=== PATIENT | female | born 1980 | race Caucasian/White ===

== ENCOUNTER 2016-05-08 07:03 | Emergency (ER) | payer BC ==
[2016-05-08] MEDS ORDERED: Ondansetron INJ* 2 MG/ML VIAL IV ONE (07:40)
[2016-05-08 08:09] LABS: Hematocrit 44 % (35-47); Hemoglobin 14.8 g/dl (12.0-16.0); Mean Corpuscular HGB Conc 33 g/dl (31-36); Mean Corpuscular Hemoglobin 31 pg (27-31); Mean Corpuscular Volume 92 fL (80-97); Mean Platelet Volume 9 um3 (7.4-10.4); Red Cell Distribution Width 13 % (10.5-15); White Blood Count 12.5 10^3/ul (3.5-10.8)
[2016-05-08] MEDS: NS 0.9% 1000 ML* 2,000 ML IV ONE ×2 (08:09→10:04)
[2016-05-08 08:23] LABS: Albumin 4.3 g/dL (3.2-5.2); BUN/Creatinine Ratio 15.1 (8-20); Calcium 9.3 mg/dL (8.6-10.3); EGFR African American 75.9 (>60); Globulin 3.1 g/dL (2-4); Potassium 4.3 mmol/L (3.5-5.0); Total Bilirubin 1.1 mg/dL (0.2-1.0); Total Protein 7.4 g/dL (6.4-8.9)
[2016-05-08 08:26] LABS: Urine Bilirubin Negative (Negative); Urine Glucose 3+(>=500 mg/dL) (Negative); Urine Nitrite Negative (Negative)
[2016-05-08 08:58] LABS: Venous Bicarbonate HCO3 21.1 mmol/L (24-28)
[2016-05-08 12:41] VITALS: BP 112/60
--- NOTE | 2016-05-10 16:32 | ED ---
David Wheeler Matthew, scribed for Todd Alvarenga MD on 05/08/16 at 0738 . HPI Diabetic - HPI Summary HPI Summary: A 35 y/o female presents to the ED with ketones in her urine after her insulin pump stopped function in the middle of the night. This morning, the patient awoke and tested her urine for ketones and they were found to be high, which prompted her to present to the ED. Associated symptoms include body aches, chest pain, nausea, vomiting - 2x, diaphoresis, diarrhea, coughing, and lightheadedness. The patient states that she was feeling fine yesterday. She works at [employer] and has been around customers who were ill. She received her flu shot this year. PMHx: Diabetes. LNMP was 2 weeks ago. - History Of Current Complaint Chief Complaint: EDGeneral Time Seen by Provider: 05/08/16 07:17 Hx Obtained From: Patient Onset/Duration: Lasting Hours, Still Present Timing: Constant Severity Initially: Moderate Severity Currently: Moderate Aggravating: Nothing Alleviating: Nothing Associated Signs & Symptoms: Cough, Diaphoresis, Diarrhea, Nausea - Allergies/Home Medications Allergies/Adverse Reactions: Allergies Allergy/AdvReac Type Severity Reaction Status Date / Time No Known Allergies Allergy Verified 05/08/16 07:04 PMH/Surg Hx/FS Hx/Imm Hx Endocrine/Hematology History: Reports: Hx Diabetes Infectious Disease History: No Infectious Disease History: Denies: Traveled Outside the [place] in Last 30 Days - Family History Known Family History: Positive: Hypertension Family History: R & n/C - Social History Alcohol Use: None Hx Substance Use: No Substance Use Type: Reports: None Hx Tobacco Use: No Smoking Status (MU): Never Smoked Tobacco Review of Systems Constitutional: Negative Negative: Fever, Chills Eyes: Negative Negative: Erythema ENT: Negative Negative: Sore Throat Positive: Chest Pain Positive: Cough. Negative: Shortness Of Breath Positive: Vomiting, Diarrhea, Nausea. Negative: Abdominal Pain Genitourinary: Other - "keytones" Negative: dysuria, hematuria Positive: Myalgia - body aches. Negative: Edema Skin: Negative Negative: Rash Neurological: Other - lightheadedness Psychological: Normal All Other Systems Reviewed And Are Negative: Yes Physical Exam Triage Information Reviewed: Yes Vital Signs On Initial Exam: Initial Vitals Temp Pulse Resp BP Pulse Ox 98.8 F 108 18 113/71 99 05/08/16 07:04 05/08/16 07:04 05/08/16 07:04 05/08/16 07:04 05/08/16 07:04 Vital Signs Reviewed: Yes Appearance: Positive: No Pain Distress, Well-Nourished Skin: Positive: Warm, Dry Head/Face: Positive: Other - Normocephalic; Atraumatic Eyes: Positive: Conjunctiva Clear Dental: Negative: Cervical Lymphadenopathy Neck: Positive: Supple, No Lymphadenopathy, Other: - Full ROM Respiratory/Lung Sounds: Positive: Breath Sounds Present, Other - Normal Effort. Negative: Rales, Stridor, Tracheal Deviation, Wheezes Cardiovascular: Positive: RRR, Other - Heart sounds normal; Intact distal pulses; The pedal pulses are 2+ and symmetric. Radial pulses are 2+ and symmetric.. Negative: Murmur Abdomen Description: Positive: Nontender, Soft, Other: - NO rebound. Negative: Distended, Guarding Musculoskeletal: Negative: Edema Left, Edema Right Neurological: Positive: Alert, Oriented to Person Place, Time Psychiatric: Positive: Affect/Mood Appropriate Diagnostics - Vital Signs Vital Signs Temp Pulse Resp BP Pulse Ox 05/08/16 07:04 98.8 F 108 18 113/71 99 - Laboratory Result Diagrams: 05/08/16 07:50 05/08/16 07:50 Lab Statement: Any lab studies that have been ordered have been reviewed, and results considered in the medical decision making process. - EKG 07:07 Cardiac Rate: NL - 96 bpm EKG Rhythm: Sinus Rhythm Ectopy: None EKG Interpretation: No STEMI Diabetic Course/Dx - Course Assessment/Plan: A 35 y/o female presents to the ED with elevated ketones level after her insulin pump stopped function. Associated symptoms include body aches , chest pain, nausea, vomiting - 2x, diaphoresis, diarrhea, coughing, and lightheadedness. Labs were reviewed. EKG shows NSR at 96 bpm. In the ED course, the patient was given 2L of IV fluids and Zofran. Shes doing well in the ED and will be discharged home to follow-up with her PCP. - Diagnoses Provider Diagnoses: Gastroenteritis, Dehydration Discharge - Discharge Plan Condition: Stable Disposition: HOME Prescriptions: Ondansetron ODT TAB* [Zofran Odt TAB*] 4 mg PO Q8H PRN #9 tab.odt PRN Reason: Nausea/Vomiting Patient Education Materials: Gastroenteritis (ED), Dehydration (ED) Referrals: Mayank Green MD [Primary Care Provider] - 2 Days Additional Instructions: Please follow-up with your primary care physician in 2 days. Return to the emergency department for changing or worsening symptoms The documentation as recorded by the David samson Matthew accurately reflects the service I personally performed and the decisions made by me, Todd Alvarenga MD.
== END 2016-05-08 12:38 | disposition home or self-care (01) ==
LOC: ED 07:03
DX: K52.9 Noninfective gastroenteritis and colitis, unspecified (principal); E86.0 Dehydration; R05 Cough; R61 Generalized hyperhidrosis; R19.7 Diarrhea, unspecified; R11.0 Nausea
CPT/HCPCS: 36415; 80053; 81003; 82803; 83605; 85025; 93005; 96374; 99282; J2405

== ENCOUNTER 2017-03-02 16:47 | Emergency (ER) | payer SELFPAY ==
--- OUTSIDE RECORDS SUMMARY | 2017-03-02 16:58 | XMS REPORT ---
:1980 External Reference #:[id number] Author Organization [facility] Address [address] [place] [address] Phone [phone] Care Team Providers Name Role Phone Nan Green Care Team Information Cut Filer Unavailable Nan Green Primary Care Physician Unavailable Payers Type Date Identification Numbers Payment Provider Subscriber Commercial Effective: Policy Number: BC/BS Of NILAM Sukhjinder Jack 2017 [id number] PayID: [id number] [address] [address] [place] [address] Problems Date Description Provider Status Onset: 08/25/2016 Type 1 diabetes mellitus Adeola Lamar M.D. Active Onset: 08/25/2016 Depressive disorder Adeola Lamar M.D. Active Onset: 06/20/2011 Brachial neuritis Aly Abbasi M.D. Resolved Resolved: 08/25/2016 Onset: 07/09/2011 Neck pain Aly Abbasi M.D. Resolved Resolved: 08/25/2016 Onset: 07/09/2011 Acute maxillary sinusitis Aly Abbasi M.D. Resolved Resolved: 08/25/2016 Family History Date Family Member(s) Problem(s) Comments General Family is from [place] and [place]. PGF 70's, DM with jose leg amputation.MGM due to Breast CA age 80's. DMNo Fam hx Colon Ca. No other female cancers. Father 53, lung ca, smoker. continuous mining machine lode miner. Mother 55, healthy. smoker, alcoholic. Social History Type Date Description Comments Education Highest level of education completed is a bachelor's degree. 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 Occupation Works at [employer]. Cigarette Use Current Cigarette Smoker 1/2 Pack since age 22. on and off. has Daily quit for years. now smoking 1/2 ppd 2012-03/2016 Smoking Patient is a current smoker, smokes 1 cigarette a day - quitting every day Sexual Hx no control. Allergies, Adverse Reactions, Alerts Date Description Reaction Status Severity Comments 06/20/2011 NKDA active Medications Medication Date Status Form Strength Qnty SIG Indications Ordering Provider Edwin Del Real Active Tablets 4mg 60tabs 1-2 tab R11.2 Veda Moffett Dispers under jocelyne Ladd [employer] every 8 hours as needed Work Note Active Please R11.2 Veda Moffett excuse Sukhjinder Ladd [employer] from work 02/16-02/18 for recent illness, clear to return 02/19/17. Bupropion HCL Active Tablets ER 150mg 60tabs take 1 F17.210 Nan Boucher ER (SR) 017 12HR tablet Kate, every M.D. morning for a week. then twice after that with the second pill by noon. Naproxen Active Tablets 500mg 60tabs 1 by M70.41 Joanne 016 mouth Darlyn, twice a Afnp-C day w/ food Lorazepam Active Tablets 0.5mg 30tabs 1 by F41.9 Mayank JDesi 015 mouth Breiman, twice a M.D. day as needed anxiety Escitalopram Active Tablets 10mg 60tabs Take 2 F32.9 Berenice Oxalate 015 Tablets Shade, By Mouth MEDICAL CSR Every Day F41.9 Proair HFA 09/10/2014 Active Aerosol 108(90Base) 1units 2 puffs J20.9 Berenice mcg/Act every 4 Shade, hours as MEDICAL CSR needed Glucometer One 04/04/2009 Active Liquid 1units #1 meter 250.00 Nan Boucher Touch Ultra with Kate, supplies M.D. Lancets 04/04/2009 Active Misc 100unit check 250.00 Nan willis sugar Kate, twice M.D. daily Glucometer 04/04/2009 Active 100unit test 250.00 Nan Kiser s sugar Kate, twice M.D. daily Insulin Pump Active units Unknown Omni Pod vary per hr Novolog Active Solution 100Unit/ML units Unknown vary per hr Prilosec Active Capsules 20mg 1 by Unknown mouth every day Azithromycin 11/17/2016 Hx Tablets 250mg 6tabs 2 tabs R05 Mayank garcia [facility], 02/17/2017 then 1 M.D. tab daily for next 4 days Cheratussin ac 11/17/2016 Hx Solution 100-10mg/5ML 118ml 5ML by [facility] Mayank Charles idris [facility], 02/17/2017 every 6 M.D. hours Prednisone 08/28/2016 Hx Tablets 20mg 16tabs 2 by Adeola idris [place], 11/16/2016 every day M.D. x 4 days then 1 by mouth every day x 4 days, 1/2 tab x 4 days; take with food Azithromycin 08/25/2016 Hx Tablets 250mg 6tabs 2 tabs [facility] Adeola garcia [place], 11/16/2016 then 1 M.D. tab daily for next 4 days Cheratussin ac 08/25/2016 Hx Solution 100-10mg/5ML 118ml [address], 11/16/2016 by mouth M.D. every 6 hours Betamethasone 07/01/2016 Hx Cream 0.1% 45gm apply R21 Berenice Valerate - twice a Shade, 11/16/2016 day MEDICAL CSR Levofloxacin 04/10/2016 Hx Tablets 500mg 10tabs 1 by J20.9 Berenice mouth [place], 07/01/2016 every day MEDICAL CSR for 10 days Physical 04/02/2016 Hx evaluate M26.60 Nan Boucher Therapy - and treat 2 Kate, 07/01/2016 left TMJ M.D. Cheratussin ac 01/08/2016 Hx Syrup 100-10mg/5ML 118ml 1-[address], 08/24/2016 by mouth MEDICAL CSR every night at bedtime as needed cough J20.9 Benzonatate 01/08/2016 - Hx Capsules 100mg 60caps 1 po tid 5 Maria 04/12/2016 prn cough Chandrika, MEDICAL CSR Orphenadrine 11/28/2015 - Hx Tablets ER 100mg 30tabs 1 by mouth M54.2 Joanne Citrate ER 12/10/2015 12HR every 12 Darlyn, hours as Afnp-C needed for muscle spasm Azithromycin 09/10/2014 - Hx Tablets 250mg 6tabs 2 by mouth 466.0 Angela 09/15/2014 today and 1 Brown, [employer] tab x 4 days Cheratussin ac 09/10/2014 - Hx Syrup 100-10mg 118ml 2 teaspoon 466.0 Angela 09/17/2014 /5ML every 4 Brown, [employer] hours as needed Alprazolam 05/23/2014 - Hx Tablets 0.5mg 60tabs 1 by mouth 300.00 Berenice 10/19/2014 twice a day Shade, MEDICAL CSR Citalopram 05/23/2014 - Hx Tablets 20mg 30tabs Take 1 300.00 Berenice Hydrobromide 10/19/2014 Tablet Shade, Every Day MEDICAL CSR 311 Alprazolam 05/03/2014 - Hx Tablets 0.25mg 30tabs 1-2 twice a 300.00 Berenice 05/23/2014 day as Shade, MEDICAL CSR needed anxiety Citalopram 05/03/2014 - Hx Tablets 10mg 30tabs 1 by mouth 300.00 Bereince Hydrobromide 05/23/2014 every day Shade, MEDICAL CSR at at bedtime 311 Tussionex 04/04/2014 - Hx Liquid ER 10-8mg/5ML 120cc 1 teaspoon 786.2 Berenice Pennkinetic 08/03/2014 every 12 Shade, Extended hours as MEDICAL CSR Release needed cough Amoxicillin 01/09/2014 - Hx Tablets 500mg 21tabs 1 tab by 462 Maria 03/27/2014 mouth three Chandrika, times a day MEDICAL CSR x 7 days Samples Work Note 01/09/2014 - Hx please 786.2 Maria 03/27/2014 excuse from [email or web address], work due to MEDICAL CSR infectious illness through 01/12/14 Proair HFA 01/09/2014 - Hx Aerosol 108(90Base) 1units 2 puffs 786.2 Maria 08/03/2014 mcg/Act three times Chandrika, a day x 2 MEDICAL CSR weeks Cheratussin ac 01/09/2014 - Hx Syrup 100-10mg/5ML 100ml 5 786.2 Maria 03/27/2014 milliliters Chandrika, every 12 MEDICAL CSR hours as needed cough Flexeril 09/01/2013 - Hx Tablets 5mg 30tabs 1 po tid prn 724.2 Tayla 04/06/2014 nack spasm Panda, Afnp-C Hydrocodone/Ac 09/01/2013 - Hx Tablets 5-325mg 45tabs 1 po tid prn 724.2 Berenice etaminophen 01/09/2014 Shade, MEDICAL CSR Nystatin/Triam 07/24/2013 - Hx Cream [id number] 30gm apply to 112.3 Angela cinolone 09/01/2013 it/GM-% affected Brown, [employer] ASSEMBLER area bid until clear Proair HFA 04/25/2013 - Hx Aerosol 108(90Base) 1units 2 puffs tid 786.2 Maria 01/09/2014 mcg/Act x1 weeks Chandrika, MEDICAL CSR Azithromycin 04/25/2013 - Hx Tablets 250mg 7tabs 2 take by 466.0 Maria 07/24/2013 mouth Chandrika, tabletstoday MEDICAL CSR ,then one tab days 2-5 until finished Cheratussin ac 04/25/2013 - Hx Syrup 100-10mg/5ML 150ml 5 ml every 786.2 Maria 09/01/2013 12 hrs prn Chandrika, cough MEDICAL CSR Physical 08/03/2012 - Hx recent onset Tayla Therapy 09/17/2012 back spasms, Panda, please Afnp-C evaluate and treat for control and prevention Augmentin 07/09/2011 - Hx Tablets 500-125mg 20tabs one tab po 461.0 Lu A. 04/18/2012 bid for ten Elroy, garth Ramirez Naproxen 06/20/2011 - Hx Tablets 500mg 30tabs 1 po bid prn 723.4 Lu A. 04/18/2012 James Abbasi Vicodin 06/20/2011 - Hx Tablets 5-500mg 50tabs 1 to 2 po 723.4 Lu A. 02/16/2013 every six Abbasi, hours prn. MDesiD. Flexeril 06/20/2011 - Hx Tablets 5mg 15tabs one tab po 723.4 Aly Shen 03/27/2014 qhs prn mahad Abbasi M.D. Keflex 11/12/2010 - Hx Capsules 500mg 10caps 1 po bid Mayank Charles 06/20/2011 James Green Work 08/13/2010 - Hx Patient has 729.5 Suzi M. Restriction 11/12/2010 an arm LaFace, injury, no DebbieDDesi lifting more than 5 pounds until 08/18/10 Keflex 08/01/2010 - Hx Capsules 500mg 10caps 1 po bid Mayank Charles 08/13/2010 James Green Keflex 06/02/2010 - Hx Capsules 500mg 16caps 1 po bid 703.8 Tayla 08/01/2010 Nic Mosqueda-C Azithromycin 04/12/2010 - Hx Tablets 250mg 6tabs 2 tabs 466.0 Joanne 04/17/2010 today; then Darlyn, one tab qd x Afnp-C 4 more days Omeprazole 12/16/2009 - Hx Capsules 20mg 60caps 1 po bid 787.01 Aly Shen 06/02/2010 DR Elroy M.D. Ciloxan 11/15/2009 - Hx Solution 0.3% 1bottl 2 drops left 380.22 Nan Boucher 11/15/2009 e ear twice lluvia Green M.D. Ofloxacin 11/15/2009 - Hx Solution 0.3% 10ml 10 dropsleft Nan Boucher 12/16/2009 ear bid James Green Augmentin 09/04/2009 - Hx Tablets 875-125mg 28tabs 1 po bid 461.9 Berenice 11/15/2009 with food x David Laguerred MEDICAL CSR Note 09/04/2009 - Hx Sukhjinder was 461.9 Berenice 11/15/2009 seen by me Laguerre today and MEDICAL CSR may return to work tomorrow, 6\\24\\10 Fluconazole 04/10/2009 - Hx Tablets 150mg 2tabs 1 po weekly 112.1 Nan Boucher 04/30/2009 for yeast infection. James Green Metformin HCL 04/04/2009 - Hx Tablets 500mg 60tabs 1 po bid 250.00 Nan LDesi 04/30/2009 James Green Glucometer - Hx 250.00 Unknown Encore High 04/04/2009 Control Lantus - Hx Solution 100Unit/ML 10 Units QHS Unknown Solostar 12/16/2009 Novolog - Hx Solution 100Unit/ML as Directed Unknown Flexpen 12/16/2009 Probiotic - Hx as directed Unknown 02/19/2010 Vitamin D - Hx Capsules 1000Unit 1 po qd Unknown 11/12/2010 Levaquin - Hx Tablets 750mg 1 every day Unknown 12/13/2015 x 5d Immunizations CPT Code Status Date Vaccine Lot # [id number] Given 04/02/2016 Pneumococcal Conjugate Vacc-13 [id number] Given 06/02/2010 Tdap Tetanus, W Pertussis [id number] Vital Signs Date Vital Result Comment 02/18/2017 BP Systolic 100 mmHg BP Diastolic 62 mmHg Heart Rate 90 /min Body Temperature 98.2 F Height 64 inches 5'4" Weight 152.50 lb BMI (Body Mass Index) 26.2 kg/m2 11/17/2016 BP Systolic 100 mmHg BP Diastolic 64 mmHg Heart Rate 96 /min Body Temperature 98.4 F Height 64 inches 5'4" 08/25/2016 BP Systolic 108 mmHg BP Diastolic 78 mmHg Heart Rate 84 /min Body Temperature 97.9 F Height 64 inches 5'4" Weight 144.25 lb BMI (Body Mass Index) 24.8 kg/m2 07/01/2016 BP Systolic 100 mmHg BP Diastolic 70 mmHg Heart Rate 72 /min Body Temperature 98.4 F Respiratory Rate 16 /min Weight 147.00 lb 04/10/2016 BP Systolic 110 mmHg BP Diastolic 78 mmHg Heart Rate 78 /min Body Temperature 97.9 F Respiratory Rate 18 /min O2 % BldC Oximetry 98 % Weight 148.00 lb 04/02/2016 BP Systolic 110 mmHg BP Diastolic 80 mmHg Heart Rate 68 /min Body Temperature 98.1 F Respiratory Rate 18 /min Weight 148.00 lb 01/08/2016 BP Systolic 122 mmHg BP Diastolic 74 mmHg Heart Rate 76 /min Body Temperature 98.0 F Respiratory Rate 16 /min Height 64 inches 5'4" Weight 148.38 lb BMI (Body Mass Index) 25.5 kg/m2 12/12/2015 BP Systolic 104 mmHg BP Diastolic 60 mmHg Heart Rate 76 /min Body Temperature 98.2 F Respiratory Rate 16 /min Height 64 inches 5'4" Weight 148.38 lb BMI (Body Mass Index) 25.5 kg/m2 11/28/2015 BP Systolic 104 mmHg BP Diastolic 66 mmHg Heart Rate 72 /min Body Temperature 98.4 F Height 64 inches 5'4" Weight 148.38 lb BMI (Body Mass Index) 25.5 kg/m2 09/12/2015 BP Systolic 118 mmHg BP Diastolic 64 mmHg Heart Rate 72 /min Body Temperature 98.3 F Respiratory Rate 16 /min Height 64 inches 5'4" Weight 142.50 lb BMI (Body Mass Index) 24.5 kg/m2 10/19/2014 BP Systolic 104 mmHg BP Diastolic 64 mmHg Heart Rate 88 /min Body Temperature 98.6 F Respiratory Rate 17 /min Height 64 inches 5'4" Weight 145.12 lb BMI (Body Mass Index) 24.9 kg/m2 09/10/2014 BP Systolic 118 mmHg BP Diastolic 78 mmHg Heart Rate 90 /min Body Temperature 97.6 F Respiratory Rate 17 /min O2 % BldC Oximetry 99 % URI Height 64 inches 5'4" 08/03/2014 BP Systolic 112 mmHg BP Diastolic 62 mmHg Heart Rate 92 /min Body Temperature 98.6 F Weight 142.38 lb 05/23/2014 BP Systolic 92 mmHg BP Diastolic 62 mmHg Heart Rate 88 /min Body Temperature 98.5 F Height 64 inches 5'4" Weight 148.00 lb BMI (Body Mass Index) 25.4 kg/m2 05/03/2014 BP Systolic 112 mmHg BP Diastolic 70 mmHg Heart Rate 80 /min Body Temperature 97.9 F Respiratory Rate 16 /min Height 64 inches 5'4" Weight 150.12 lb BMI (Body Mass Index) 25.8 kg/m2 04/04/2014 BP Systolic 110 mmHg BP Diastolic 80 mmHg Heart Rate 80 /min Body Temperature 98.4 F Respiratory Rate 16 /min Height 64 inches 5'4" Weight 153.00 lb BMI (Body Mass Index) 26.3 kg/m2 03/27/2014 BP Systolic 100 mmHg BP Diastolic 70 mmHg Heart Rate 76 /min Body Temperature 98.2 F Respiratory Rate 16 /min Height 64 inches 5'4" Weight 153.00 lb BMI (Body Mass Index) 26.3 kg/m2 01/09/2014 BP Systolic 102 mmHg BP Diastolic 62 mmHg Heart Rate 76 /min Body Temperature 97.0 F Respiratory Rate 14 /min Height 64 inches 5'4" Weight 144.00 lb BMI (Body Mass Index) 24.7 kg/m2 09/01/2013 BP Systolic 112 mmHg BP Diastolic 70 mmHg Heart Rate 88 /min Body Temperature 98.2 F Respiratory Rate 16 /min Height 64 inches 5'4" Weight 146.00 lb BMI (Body Mass Index) 25.1 kg/m2 07/24/2013 BP Systolic 110 mmHg BP Diastolic 80 mmHg Heart Rate 80 /min Body Temperature 98.8 F Respiratory Rate 18 /min Height 64 inches 5'4" Weight 148.00 lb BMI (Body Mass Index) 25.4 kg/m2 04/25/2013 BP Systolic 112 mmHg BP Diastolic 72 mmHg Heart Rate 66 /min Body Temperature 98.6 F Respiratory Rate 16 /min Height 64 inches 5'4" Weight 150.38 lb BMI (Body Mass Index) 25.8 kg/m2 02/16/2013 BP Systolic 110 mmHg BP Diastolic 68 mmHg Heart Rate 74 /min Body Temperature 98.3 F Respiratory Rate 14 /min Height 64 inches 5'4" Weight 145.00 lb BMI (Body Mass Index) 24.9 kg/m2 08/03/2012 BP Systolic 118 mmHg BP Diastolic 64 mmHg Heart Rate 90 /min Body Temperature 98.6 F Height 64 inches 5'4" Weight 148.50 lb BMI (Body Mass Index) 25.5 kg/m2 04/18/2012 BP Systolic 114 mmHg BP Diastolic 60 mmHg Heart Rate 74 /min Body Temperature 98.6 F ibuprofen 4 hrs ago Height 64 inches 5'4" Weight 152.00 lb BMI (Body Mass Index) 26.1 kg/m2 07/09/2011 BP Systolic 100 mmHg BP Diastolic 66 mmHg Heart Rate 84 /min Body Temperature 98.9 F Height 64 inches 5'4" Weight 146.00 lb BMI (Body Mass Index) 25.1 kg/m2 06/20/2011 BP Systolic 106 mmHg BP Diastolic 60 mmHg Heart Rate 84 /min Body Temperature 98.4 F Height 64 inches 5'4" Weight 151.00 lb BMI (Body Mass Index) 25.9 kg/m2 11/12/2010 BP Systolic 100 mmHg BP Diastolic 50 mmHg Heart Rate 88 /min Body Temperature 98.8 F Height 64 inches 5'4" Weight 142.00 lb BMI (Body Mass Index) 24.4 kg/m2 10/22/2010 BP Systolic 100 mmHg BP Diastolic 70 mmHg Heart Rate 80 /min Body Temperature 98.0 F Height 64 inches 5'4" Weight 142.00 lb BMI (Body Mass Index) 24.4 kg/m2 08/13/2010 BP Systolic 110 mmHg BP Diastolic 70 mmHg Heart Rate 80 /min Body Temperature 99.0 F Respiratory Rate 16 /min Height 64 inches 5'4" Weight 141.00 lb BMI (Body Mass Index) 24.2 kg/m2 08/01/2010 BP Systolic 96 mmHg BP Diastolic 60 mmHg Heart Rate 92 /min Body Temperature 98.6 F Respiratory Rate 12 /min Height 64 inches 5'4" Weight 141.00 lb BMI (Body Mass Index) 24.2 kg/m2 06/02/2010 BP Systolic 100 mmHg BP Diastolic 62 mmHg Heart Rate 68 /min Body Temperature 98.3 F Respiratory Rate 16 /min Height 64 inches 5'4" Weight 142.00 lb BMI (Body Mass Index) 24.4 kg/m2 04/12/2010 BP Systolic 110 mmHg BP Diastolic 66 mmHg Heart Rate 72 /min Body Temperature 98.7 F Respiratory Rate 16 /min O2 % BldC Oximetry 99 % Height 64 inches 5'4" Weight 141.00 lb BMI (Body Mass Index) 24.2 kg/m2 02/19/2010 BP Systolic 92 mmHg BP Diastolic 60 mmHg Heart Rate 80 /min Body Temperature 99.2 F Respiratory Rate 16 /min Height 64 inches 5'4" Weight 142.00 lb BMI (Body Mass Index) 24.4 kg/m2 12/16/2009 BP Systolic 94 mmHg BP Diastolic 60 mmHg Heart Rate 80 /min Body Temperature 98.9 F Respiratory Rate 16 /min O2 % BldC Oximetry 97 % Height 64 inches 5'4" Weight 145.00 lb BMI (Body Mass Index) 24.9 kg/m2 11/15/2009 BP Systolic 98 mmHg BP Diastolic 62 mmHg Heart Rate 72 /min Body Temperature 97.7 F Height 64 inches 5'4" Weight 145.00 lb BMI (Body Mass Index) 24.9 kg/m2 09/04/2009 BP Systolic 110 mmHg BP Diastolic 60 mmHg Body Temperature 98.5 F Weight 144.00 lb 04/30/2009 BP Systolic 88 mmHg BP Diastolic 58 mmHg Heart Rate 80 /min Weight 138.00 lb 04/26/2009 BP Systolic 98 mmHg BP Diastolic 60 mmHg Heart Rate 76 /min Body Temperature 97.7 F Respiratory Rate 12 /min Weight 137.00 lb 04/10/2009 BP Systolic 110 mmHg BP Diastolic 60 mmHg Heart Rate 78 /min Body Temperature 98.3 F Height 64 inches 5'4" Weight 138.00 lb BMI (Body Mass Index) 23.7 kg/m2 04/04/2009 BP Systolic 110 mmHg BP Diastolic 72 mmHg Heart Rate 88 /min Height 64 inches 5'4" Weight 142.00 lb BMI (Body Mass Index) 24.4 kg/m2 Results Test Date Test Result H/L Range Note CBC Auto Diff 05/08/2016 White Blood Count 12.5 10^3/uL High 3.5-10.8 Red Blood Count 4.80 10^6/uL 4.0-5.4 Hemoglobin 14.8 g/dL 12.0-16.0 Hematocrit 44 % 35-47 Mean Corpuscular Volume 92 fL 80-97 Mean Corpuscular Hemoglobin 31 pg 27-31 Mean Corpuscular HGB Conc 33 g/dL 31-36 Red Cell Distribution Width 13 % 10.5-15 Platelet Count 179 10^3/uL 150-450 Mean Platelet Volume 9 um3 7.4-10.4 Abs Neutrophils 10.0 10^3/uL High 1.5-7.7 Abs Lymphocytes 1.7 10^3/uL 1.0-4.8 Abs Monocytes 0.4 10^3/uL 0-0.8 Abs Eosinophils 0.3 10^3/uL 0-0.6 Abs Basophils 0.1 10^3/uL 0-0.2 Abs Nucleated RBC 0.01 10^3/uL Granulocyte % 79.8 % 38-83 Lymphocyte % 13.7 % Low 25-47 Monocyte % 3.4 % 1-9 Eosinophil % 2.5 % 0-6 Basophil % 0.6 % 0-2 Nucleated Red Blood Cells % 0 Urinalysis Profile 05/08/2016 Urine Color Yellow Urine Appearance Cloudy Urine Specific [place] 1.029 1.010-1.030 Urine pH 5.0 5-9 Urine Urobilinogen Negative Negative Urine Ketones 2+ Negative Urine Protein Negative Negative Urine Leukocytes Negative Negative Urine Blood Negative Negative Urine Nitrite Negative Negative Urine Bilirubin Negative Negative Urine Glucose 3+(>=500 mg/dL) Negative Comp Metabolic Panel 05/08/2016 Sodium 130 mmol/L Low 133-145 Potassium 4.3 mmol/L 3.5-5.0 Chloride 99 mmol/L Low 101-111 Co2 Carbon Dioxide 22 mmol/L 22-32 Anion Gap 9 mmol/L 2-11 Glucose 306 mg/dL High 70-100 Blood Urea Nitrogen 16 mg/dL 6-24 Creatinine 1.06 mg/dL High 0.51-0.95 BUN/Creatinine Ratio 15.1 8-20 Calcium 9.3 mg/dL 8.6-10.3 Total Protein 7.4 g/dL 6.4-8.9 Albumin 4.3 g/dL 3.2-5.2 Globulin 3.1 g/dL 2-4 Albumin/Globulin Ratio 1.4 1-3 Total Bilirubin 1.10 mg/dL High 0.2-1.0 Alkaline Phosphatase 56 U/L 34-104 Alt 13 U/L 7-52 Ast 14 U/L 13-39 Egfr Non- 59.0 >60 Egfr 75.9 >60 1 Laboratory test finding 05/08/2016 Lactic Acid 1.0 mmol/L 0.5-2.0 2 Venous Blood Gas 05/08/2016 Venous Blood pH 7.32 Low 7.33-7.43 Venous Pco2 44 mmHg 41-51 Venous Po2 31 mmHg Low 35-45 Venous O2 Saturation 60.2 % Low 70-80 Venous Blood Base Excess -3.5 Low 0-4 3 Venous Bicarbonate Hco3 21.1 mmol/L Low 24-28 Comp Metabolic Panel 12/30/2015 Sodium 134 mmol/L 133-145 Potassium 3.9 mmol/L 3.5-5.0 Chloride 101 mmol/L 101-111 Co2 Carbon Dioxide 28 mmol/L 22-32 Anion Gap 5 mmol/L 2-11 Glucose 241 mg/dL High 70-100 Blood Urea Nitrogen 11 mg/dL 6-24 Creatinine 0.83 mg/dL 0.51-0.95 BUN/Creatinine Ratio 13.3 8-20 Calcium 9.4 mg/dL 8.6-10.3 Total Protein 7.2 g/dL 6.4-8.9 Albumin 4.1 g/dL 3.2-5.2 Globulin 3.1 g/dL 2-4 Albumin/Globulin Ratio 1.3 1-3 Total Bilirubin 0.50 mg/dL 0.2-1.0 Alkaline Phosphatase 64 U/L 34-104 Alt 12 U/L 7-52 Ast 14 U/L 13-39 Egfr Non- 78.2 >60 Egfr 100.6 >60 4 Laboratory test finding 12/30/2015 C Reactive Protein < 1.00 mg/L &lt ; 5.00 5 CBC Auto Diff 12/30/2015 White Blood Count 8.7 10^3/uL 3.5-10.8 Red Blood Count 4.36 10^6/uL 4.0-5.4 Hemoglobin 13.7 g/dL 12.0-16.0 Hematocrit 40 % 35-47 Mean Corpuscular Volume 92 fL 80-97 Mean Corpuscular Hemoglobin 31 pg 27-31 Mean Corpuscular HGB Conc 34 g/dL 31-36 Red Cell Distribution Width 14 % 10.5-15 Platelet Count 219 10^3/uL 150-450 Mean Platelet Volume 9 um3 7.4-10.4 Abs Neutrophils 4.9 10^3/uL 1.5-7.7 Abs Lymphocytes 2.8 10^3/uL 1.0-4.8 Abs Monocytes 0.6 10^3/uL 0-0.8 Abs Eosinophils 0.2 10^3/uL 0-0.6 Abs Basophils 0.1 10^3/uL 0-0.2 Abs Nucleated RBC 0 10^3/uL Granulocyte % 56.5 % 38-83 Lymphocyte % 32.3 % 25-47 Monocyte % 7.2 % 1-9 Eosinophil % 2.6 % 0-6 Basophil % 1.4 % 0-2 Nucleated Red Blood Cells % 0 Vaginitis/Vaginosis Dna Probe 09/12/2015 Kimber species Positive Negative 6, 7 Gardnerella vaginalis Positive Negative 6, 8 Trichomonas vaginalis Negative Negative 6, 9 Chlamydia/GC 09/12/2015 Chlamydia trachomatis, Negative Negative 6, 10 Amplification Maribel Neisseria gonorrhoeae, Maribel Negative Negative 6, 11 Please note: See Comment: 6, 12 CBC Electronic (Fma) 09/12/2015 WBC 7.9 3.6-9.6 RBC 4.32 3.90-5.70 Hemoglobin (Fma/CMC/CTX) 13.6 g/dL 12.1 - 17.2 Hematocrit (Fma/CMC/CTX) 41.1 % 36.1 - 50.3 Platelets 210 10^3/ul 150-400 Lymph% 45.0 % 17.0-48.0 Mixed% 5.3 Neutrophils % 49.7 Mean Corpuscular Vol 95 82.2-97.4 Mean Corpuscular Hemoglobin 31.6 27.6-33.3 Mean Corpuscular Hemo Concen 33.2 32.0-36.0 RDW 13.7 11.6-13.7 Mean Platelet Volume 6.9 5.5-11.0 Ua - Micro (Fma) 09/12/2015 Appearance CLEAR Color YELLOW Glucose, Urine (Fma/CMC/CTX) >1000 Bilirubin NEG Ketones 15 SP Grav 1.030 Blood LARGE PH 6.0 Protein NEG Urobil 0.2 Nitrite NEG Leukocytes (Fma/CMC/Centrex) NEG WBC (Fma,Centrex) 2-3 RBC 8-10 Epith FEW /Lpf Bacteria TRACE /Hpf Laboratory test 09/12/2015 Hemoglobin A1c (a) 9.3 % High 4.1-5.7 finding Laboratory test 07/15/2015 Point of Care Glucose 105 mg/dL 74-106 13 finding Laboratory test 07/15/2015 Point of Care Glucose 71 mg/dL Low 74-106 14 finding Laboratory test 07/15/2015 Point of Care Glucose 94 mg/dL 74-106 15 finding Laboratory test 07/14/2015 Glucose 412 mg/dL High 70-100 finding Laboratory test 07/14/2015 Point of Care Glucose > 444 mg/dL High 74- 106 16 finding Comp Metabolic Panel 07/14/2015 Sodium 126 mmol/L Low 133-145 Potassium 4.1 mmol/L 3.5-5.0 Chloride 94 mmol/L Low 101-111 Co2 Carbon Dioxide 23 mmol/L 22-32 Anion Gap 9 mmol/L 2-11 Blood Urea Nitrogen 21 mg/dL 6-24 Creatinine 1.12 mg/dL High 0.51-0.95 BUN/Creatinine Ratio 18.8 8-20 Calcium 9.1 mg/dL 8.6-10.3 Total Protein 6.7 g/dL 6.4-8.9 Albumin 4.1 g/dL 3.2-5.2 Globulin 2.6 g/dL 2-4 Albumin/Globulin Ratio 1.6 1-3 Total Bilirubin 0.50 mg/dL 0.2-1.0 Alkaline Phosphatase 77 U/L 34-104 Alt 12 U/L 7-52 Ast 14 U/L 13-39 Egfr Non- 55.4 >60 Egfr 71.2 >60 17 Glucose 670 mg/dL High 70-100 18 Laboratory test finding 07/14/2015 HCG 0.63 mIU/mL 19 CBC Auto Diff 07/14/2015 White Blood Count 9.1 10^3/uL 3.5-10.8 Red Blood Count 4.28 10^6/uL 4.0-5.4 Hemoglobin 13.2 g/dL 12.0-16.0 Hematocrit 41 % 35-47 Mean Corpuscular Volume 96 fL 80-97 Mean Corpuscular Hemoglobin 31 pg 27-31 Mean Corpuscular HGB Conc 32 g/dL 31-36 Red Cell Distribution Width 14 % 10.5-15 Platelet Count 192 10^3/uL 150-450 Mean Platelet Volume 9 um3 7.4-10.4 Abs Neutrophils 5.9 10^3/uL 1.5-7.7 Abs Lymphocytes 2.1 10^3/uL 1.0-4.8 Abs Monocytes 0.6 10^3/uL 0-0.8 Abs Eosinophils 0.5 10^3/uL 0-0.6 Abs Basophils 0.1 10^3/uL 0-0.2 Abs Nucleated RBC 0 10^3/uL Granulocyte % 64.5 % 38-83 Lymphocyte % 22.8 % Low 25-47 Monocyte % 6.5 % 1-9 Eosinophil % 5.3 % 0-6 Basophil % 0.9 % 0-2 Nucleated Red Blood Cells % 0 Urinalysis Profile 07/14/2015 Urine Color Colorless Urine Appearance Clear Urine Specific [place] 1.024 1.010-1.030 Urine pH 6.0 5-9 Urine Urobilinogen Negative Negative Urine Ketones 1+ Negative Urine Protein Negative Negative Urine Leukocytes Negative Negative Urine Blood Negative Negative Urine Nitrite Negative Negative Urine Bilirubin Negative Negative Urine Glucose 3+(>=500 mg/dL) Negative Laboratory test finding 07/14/2015 Point of Care > 444 mg/dL High 74- 106 20 Glucose Laboratory test finding 04/25/2015 Surgical Pathology SEE RESULT BELOW 21 Comprehensive Metabolic 08/03/2014 Sodium 136 mEq/L 134-149 Prof Potassium 4.4 mEq/L 3.6-5.5 Chloride 100 mEq/L 94-112 Carbon Dioxide 25 mEq/L 21-32 Glucose 272 mg/dL High 70-105 22 BUN 13 mg/dL 6-26 Creatinine 0.9 mg/dL 0.6-1.4 BUN/Creat Ratio 14.4 CALC 8.0-36.0 Calcium 9.6 mg/dL 8.6-10.2 Total Protein 7.2 g/dL 6.4-8.3 Albumin 4.2 g/dL 3.8-5.5 Globulin 3.0 g/dL 2.0-4.8 A/G Ratio 1.4 CALC 0.6-2.3 Alk. Phosphatase 49 U/L 30-110 Alt (SGPT) 14 U/L 7-35 Ast (Sgot) 13 U/L 5-34 Total Bilirubin 0.6 mg/dL 0.2-1.3 Laboratory test finding 08/03/2014 TSH 0.84 mIU/L 0.50-6.00 Complete Blood Count 08/03/2014 WBC 12.3 x10^3/UL High 3.6-9.6 23 RBC 4.55 x10^6/UL 3.90-5.70 HGB 14.6 g/dL 12.1-17.2 HCT 43 % 36-50 MCV 94.0 fL 82.2-97.4 MCH 32.2 pg 27.6-33.3 MCHC 34.1 g/dL 33.0-35.5 RDW 13.2 % 11.6-13.7 PLT 211 x10^3/UL 150-400 MPV 8.5 fL 7.4-10.4 Gran # 8.9 x10^3/UL High 1.5-7.2 Lymph# 2.8 x10^3/UL 0.7-4.9 [place]# 0.6 x10^3/UL 0.1-0.9 Gran % 71.8 % 42.2-75.2 Lymph % 22.7 % 20.5-51.1 [place]% 5.5 % 1.7-9.3 Laboratory test finding 08/03/2014 Hemoglobin A1c 8.4 % High 4.1-5.7 (Fma/CMC,CX) Urine Microalbumin Random 02/23/2014 Ur Microalbumin (mg/L) 95.0 mg/L Urine Creatinine 346.79 mg/dL Urine Microalbumin/Creatinine 27.3 Less Than 31 Laboratory test finding 02/23/2014 Vitamin B12 286 pg/mL 180-914 24, 25 TSH (Thyroid Stimulating Horm) 1.34 IU/mL 0.34-5.60 24, 26 Vitamin D, 25 Hydroxy 02/23/2014 25-Hydroxy Vitamin D2 <4.0 ng/mL 25-Hydroxy Vitamin D3 25 ng/mL 25-Hydroxy Vitamin D Total 25 ng/mL 27 CBC No Diff 02/23/2014 White Blood Count 7.7 10^3/uL 4.8-10.8 24 Red Blood Count 4.40 10^6/uL 4.0-5.4 24 Hemoglobin 14.0 g/dL 12.0-16.0 24 Hematocrit 41 % 35-47 24 Mean Corpuscular Volume 94 fL 80-97 24 Mean Corpuscular Hemoglobin 32 pg High 27-31 24 Mean Corpuscular HGB Conc 34 g/dL 31-36 24 Red Cell Distribution Width 13 % 10.5-15 24 Platelet Count 202 10^3/uL 150-450 24 Mean Platelet Volume 9 um3 7.4-10.4 24 Lipid Profile (Trig/Chol/HDL) 02/23/2014 Triglycerides 51 mg/dL 24, 28 Cholesterol 194 mg/dL 24, 29 HDL Cholesterol 81.6 mg/dL 24, 30 LDL Cholesterol 102 mg/dL 24, 31 Comp Metabolic Panel 02/23/2014 Sodium 135 mmol/L 133-145 24 Potassium 4.0 mmol/L 3.5-5.0 24 Chloride 102 mmol/L 101-111 24 Co2 Carbon Dioxide 29 mmol/L 22-32 24 Anion Gap 4 mmol/L 2-11 24 Glucose 105 mg/dL High 70-100 24 Blood Urea Nitrogen 11 mg/dL 6-24 24 Creatinine 0.90 mg/dL 0.51-0.95 24 BUN/Creatinine Ratio 12.2 8-20 24 Calcium 9.0 mg/dL 8.6-10.3 24 Total Protein 6.5 g/dL 6.4-8.9 24 Albumin 4.1 g/dL 3.2-5.2 24 Globulin 2.4 g/dL 2-4 24 Albumin/Globulin Ratio 1.7 1-3 24 Total Bilirubin 0.50 mg/dL 0.2-1.0 24 Alkaline Phosphatase 46 U/L 34-104 24 Alt 14 U/L 7-52 24 Ast 15 U/L 13-39 24 Egfr Non- 72.1 >60 24 Egfr 92.7 >60 24, 32 CBC Auto Diff 07/31/2013 White Blood Count 10.8 10^3/uL 4.8-10.8 Red Blood Count 4.17 10^6/uL 4.0-5.4 Hemoglobin 13.5 g/dL 12.0-16.0 Hematocrit 39 % 35-47 Mean Corpuscular Volume 93 fL 80-97 Mean Corpuscular Hemoglobin 32 pg High 27-31 Mean Corpuscular HGB Conc 35 g/dL 31-36 Red Cell Distribution Width 12 % 10.5-15 Platelet Count 200 10^3/uL 150-450 Mean Platelet Volume 9 um3 7.4-10.4 Abs Neutrophils 7.3 10^3/uL 1.5-7.7 Abs Lymphocytes 2.7 10^3/uL 1.0-4.8 Abs Monocytes 0.5 10^3/uL 0-0.8 Abs Eosinophils 0.2 10^3/uL 0-0.6 Abs Basophils 0.1 10^3/uL 0-0.2 Abs Nucleated RBC 0 10^3/uL Granulocyte % 67.1 % 38-83 Lymphocyte % 25.4 % 25-47 Monocyte % 4.5 % 1-9 Eosinophil % 1.7 % 0-6 Basophil % 1.3 % 0-2 Nucleated Red Blood Cells % 0 Comp Metabolic Panel 07/31/2013 Sodium 133 mmol/L 133-145 Potassium 3.7 mmol/L 3.7-5.6 Chloride 101 mmol/L 101-111 Co2 Carbon Dioxide 27 mmol/L 22-32 Anion Gap 5 mmol/L 2-11 Glucose 236 mg/dL High 70-100 Blood Urea Nitrogen 10 mg/dL 6-24 Creatinine 0.86 mg/dL 0.51-0.95 BUN/Creatinine Ratio 11.6 8-20 Calcium 9.2 mg/dL 8.6-10.3 Total Protein 6.9 g/dL 6.4-8.9 Albumin 4.2 g/dL 3.2-5.2 Globulin 2.7 g/dL 2-4 Albumin/Globulin Ratio 1.6 1-3 Total Bilirubin 0.50 mg/dL 0.2-1.0 Alkaline Phosphatase 65 U/L 34-104 Alt 10 U/L 7-52 Ast 11 U/L Low 13-39 Egfr Non- 76.0 >60 Egfr 97.7 >60 33 Urine (Fma) 07/24/2013 SP Grav 1.020 Urine, (Fma/CMC/CTX) NEGATIVE Ua - Non Micro (Fma) 07/24/2013 Appearance CLEAR Color YELLOW Glucose 100 MG/DL High HX:DM Bilirubin NEG Ketones 15 MG/DL SP Grav 1.020 Blood TRACE-LYSED PH 8.0 Protein NEG Urobil 0.2 Nitrite NEG Leukocytes (Fma/CMC/Centrex) NEG Chlamydia/GC Aptima Endocerv/Vag 07/24/2013 Chlamydia/GC, Maribel SEE BELOW 34 Source- Endocerv/Vag Swab * 34 Chlamydia Trachomatis,Maribel Negative Negative 34, 35 Neisseria Gonorrhoeae,Maribel Negative Negative 34, 36 Please Note: SEE BELOW 34, 37 Lyme Igg/M W/RFX West 02/16/2013 Lyme IgG/IgM Ab <0.91 index 0.00- 0.90 38 Lyme Disease Ab, Quant, IgM <0.91 index 0.00-0.90 39 Laboratory test finding 02/16/2013 Rheumatoid Arth Factor 10.8 IU/mL 0.0- 13.9 Antinuclear Abs, Ifa Negative 40 Laboratory test finding 02/16/2013 Sed Rate (Fma/CMC/Centrex) 6MM Vitamin D, 25 Hydroxy 01/26/2013 25-Hydroxy Vitamin D2 <4.0 ng/mL 25-Hydroxy Vitamin D3 27 ng/mL 25-Hydroxy Vitamin D Total 27 ng/mL 41 Lipid Profile (Trig/Chol/HDL) 01/26/2013 Triglycerides 33 mg/dL Low 40- 200 Cholesterol 223 mg/dL High Less than 200 HDL Cholesterol 100 mg/dL High 40-60 42 Cholesterol/HDL Ratio 2.2 Average 1-4.44 LDL Cholesterol 116.4 High Less Than 100 43 Laboratory test finding 01/26/2013 TSH (Thyroid 1.31 miu/mL 0.34-5.60 44 Stimulating Horm) Urine Microalbumin 10/12/2012 Ur Microalbumin (mg/L) < 2 mg/L 45 Random Urine Creatinine 134.8 mg/dL Urine Microalbumin/Creatinine < 1.5 Less Than 31 Comp Metabolic Panel 10/12/2012 Sodium 138 mmol/L 133-145 Potassium 4.3 mmol/L 3.5-5.0 Chloride 106 mmol/L 101-111 Co2 Carbon Dioxide 27.0 mmol/L 22-32 Anion Gap 5.0 mmol/L 2-11 Glucose 93 mg/dL 70-100 Blood Urea Nitrogen 7 mg/dL 6-24 Creatinine 0.90 mg/dL 0.50-1.40 BUN/Creatinine Ratio 7.8 Low 8-20 Calcium 9.1 mg/dL 8.1-9.9 Total Protein 6.4 g/dL 6.2-8.1 Albumin 3.8 g/dL 3.6-5.4 Globulin 2.6 g/dL 2-4 Albumin/Globulin Ratio 1.5 1-3 Total Bilirubin 0.7 mg/dL 0.4-1.5 Alkaline Phosphatase 55 U/L 30-110 Alt 16 U/L 14-54 Ast 16 U/L 12-42 Egfr Non- 72.6 >60 Egfr 93.3 >60 46 Lipid Profile (Trig/Chol/HDL) 10/12/2012 Triglycerides 61 mg/dL 40-200 Cholesterol 221 mg/dL High Less than 200 HDL Cholesterol 80 mg/dL High 40-60 47 Cholesterol/HDL Ratio 2.8 Average 1-4.44 LDL Cholesterol 128.8 High Less Than 100 48 Liver Function Panel 10/12/2012 Direct Bilirubin 0.1 mg/dL 0.1-0.5 Indirect Bilirubin 0.6 mg/dL 0.3-1.0 Influenza A&B 04/18/2012 Influenza A neg Influenza B neg Vitamin D, 25 Hydroxy 09/02/2010 25-Hydroxy Vitamin D2 <4.0 ng/mL () 25-Hydroxy Vitamin D3 40 ng/mL () 25-Hydroxy Vitamin D Total 40 ng/mL () 49 Laboratory test finding 09/02/2010 Cholesterol 206 mg/dL High Less Than 200 50 TSH 1.30 MIU/ML 0.34-5.60 Comp Metabolic Panel 09/02/2010 Sodium 134 mmol/L Low 135-145 Potassium 4.5 mmol/L 3.5-5.0 Chloride 102 mmol/L 101-111 Co2 (Carbon Dioxide) 29.0 mmol/L 22-32 Anion Gap 3.0 mmol/L 2-11 51 Glucose 173 mg/dL High 70-100 BUN 11 mg/dL 6-24 Creatinine 0.90 mg/dL 0.50-1.40 One Over Creatinine 1.10 BUN/Creatinine Ratio 12.2 8-20 Calcium 9.4 mg/dL 8.1-9.9 Total Protein 6.6 GM/DL 6.2-8.1 Albumin 4.0 GM/DL 3.6-5.4 Globulin 2.6 GM/DL 2-4 Albumin/Globulin Ratio 1.5 1-3 Bilirubin Total 0.6 mg/dL 0.4-1.5 52 Alkaline Phosphatase 51 U/L 30-110 Alt (SGPT) 15 U/L 14-54 Ast (Sgot) 2 U/L Low 12-42 eGFR Non- 73.5 > 60 eGFR 94.5 > 60 53 Laboratory test finding 02/19/2010 Amylase 96 U/L 20-120 54 Lipase 25 U/L 22-51 GC/Chlamydia Aptima 02/19/2010 Chlamydia Trachomatis Rna N 55 CBC With Electronic Diff 02/19/2010 White Blood Count 10.8 CUMM 4.8-10.8 Red Cell Count 4.55 CUMM 4.2-5.4 Hemoglobin 14.7 g/dL 12.0-16.0 Hematocrit 43 % 35-47 Mean Corpuscular Volume 94 um3 79-97 Mean Corpuscular Hemoglob 32 pg High 27-31 Mean Corpuscular HGB Cone 35 g/dL 32-36 Redcell Distribution WDTH 13 % 10.5-15 Platelet Count 199 CUMM 150-450 Mean Platelet Volume 8.5 um3 7.4-10.4 56 Manual Differential 02/19/2010 Polysegmented Neutrophil 61 % 38-83 Lymphocyte 32 % 25-47 Monocyte 2 % 0-13 Eosinophil 3 % 0-6 Atypical Lymph 2 % 0-6 Absolute Neutrophil Count 6.5 GC (N. Gonorrhoeae) Rna 02/19/2010 GC (N. Gonorrhoeae) Rna N 57 Liver Function Panel 02/19/2010 Bilirubin Direct 0.1 mg/dL 0.1-0.5 Indirect Bilirubin 0.6 mg/dL 0.3-1.0 58 (HCG) Urine 02/19/2010 Specific [place] 1.007 Low 1.010-1.030 Urine NEGATIVE Negative 59 Urinalysis 02/19/2010 Ua Color YELLOW Yellow Appearance-Urine CLEAR Clear Specific [place]-Ur 1.007 Low 1.010-1.030 Esterase-Urine NEGATIVE Negative Nitrite NEGATIVE Negative [id number] NEGATIVE Negative Protein-Urine NEGATIVE Negative PH-Urine 8.0 5-9 Blood-Urine NEGATIVE Negative Ketones-Urine NEGATIVE Negative Bilirubin-Ur NEGATIVE Negative Glucose-Urine NEGATIVE Negative Ua - Non Micro (Fma) 02/19/2010 Appearance CLEAR Color YELLOW Glucose NEG Bilirubin NEG Ketones NEG SP Grav 1.025 Blood NEG PH 7.5 Protein NEG Urobil 0.2 E.U./dL Nitrite NEG Leukocytes (Fma/CMC/Centrex) NEG Comp Metabolic Panel 02/19/2010 Sodium 134 mmol/L Low 135-145 Potassium 3.2 mmol/L Low 3.5-5.0 Chloride 99 mmol/L Low 101-111 Co2 (Carbon Dioxide) 26.0 mmol/L 22-32 Anion Gap 9.0 mmol/L 2-11 60 Glucose 96 mg/dL 70-100 61 BUN 7 mg/dL 6-24 Creatinine 0.70 mg/dL 0.50-1.40 One Over Creatinine 1.40 BUN/Creatinine Ratio 10.0 8-20 Calcium 9.4 mg/dL 8.1-9.9 Total Protein 7.7 GM/DL 6.2-8.1 Albumin 4.3 GM/DL 3.6-5.4 Globulin 3.4 GM/DL 2-4 Albumin/Globulin Ratio 1.3 1-3 Bilirubin Total 0.6 mg/dL 0.4-1.5 62 Alkaline Phosphatase 65 U/L 30-110 Alt (SGPT) 16 U/L 14-54 Ast (Sgot) 18 U/L 12-42 eGFR Non- 105.1 > 60 eGFR 127.2 > 60 63 Laboratory test 04/10/2009 RPR NON-REACTIVE Non-Reactive 64 finding Anti Viral AB Screen 04/10/2009 HIV 1/O/2 <1.00 <1.00 64, 65 Abs-Index Value HIV 1/O/2 Abs, Qual Non Reactive 64, 66 Hep C Abs 04/10/2009 Hep C Antibody NEGATIVE Negative 64 Laboratory test finding 04/10/2009 Hep B Surface Antibody 0 mIU/ml 64, 67 GC/Chlamydia Probe Or 04/10/2009 Chlamydia Amplified NEGATIVE Urine(Ce Probe GC Amplified Probe NEGATIVE Laboratory test finding 04/10/2009 Thin Prep W/HPV(Lsil/[place]USTO/Asc) SEE NOTE 68 Ua - Non Micro (Fma) 04/10/2009 Appearance CLEAR Color YELLOW Glucose, Urine (Fma/CMC/CTX) 500MG/DL Bilirubin ICTO NEG Ketones >=160 MG/DL SP Grav 1.020 Blood NEG PH 5.5 Protein SSA NEG Urobil 0.2EU/DL Nitrite NEG Leukocytes (Fma/CMC/Centrex) NEG Herpes 1+2 Type Spec 04/10/2009 HSV 1 IgG, Type <0.91 index 0.00-0.90 64, 69 Igg Spec HSV 2 IgG, Type Spec <0.91 index 0.00-0.90 64, 70 Ua - Micro (Fma) 04/04/2009 Appearance clear Color yellow Glucose 500 mg/dL Bilirubin - Ketones >160 mg/dL SP Grav 1.025 Blood trace PH 5.0 Protein - Urobil 0.2 Nitrite - Leukocytes (Fma/CMC/Centrex) - Hyaline - /Lpf Granular - /Lpf WBC (Fma,Centrex) 8-10 RBC 3-4 Mucus - /Lpf Epith few /Lpf Bacteria trace /Hpf Amorphous - /Lpf Crystals, Fluid (Fma/CMC/CTX) - Z#Comments - Laboratory test finding 04/04/2009 Hemoglobin A1c 13.2 % High 4.1-5.7 (Fma/CMC,CX) Comprehensive Metabolic 04/04/2009 Albumin 4.9 g/dL 3.8-5.5 Prof Alk. Phos. 90 U/L 30-110 Alt (SGPT) 17 U/L 7-35 Ast (Sgot) 17 U/L 5-34 BUN 13 mg/dL 6-26 Calcium 9.5 mg/dL 8.6-10.2 Chloride 99 mEq/L 94-112 Creatinine 0.6 mg/dL 0.6-1.4 Carbon Dioxide 21 mEq/L 21-32 Glucose 327 mg/dL High 70-105 Sodium 134 mEq/L 134-149 Total Bilirubin 0.5 mg/dL 0.2-1.3 Total Protein 7.3 g/dL 6.3-8.1 Potassium 4.0 mEq/L 3.6-5.5 Globulin 2.4 g/dL 2.0-4.8 A/G Ratio 2.0 Calc 0.6-2.2 BUN/Creat Ratio 22.3 Calc 8.0-36.0 Lipid Profile 04/04/2009 Cholesterol 281 mg/dL High 120-200 HDL 43 mg/dL 30-85 Triglycerides 300 mg/dL High 30-200 HDL Risk Factor 6.6 CALC 4.2-7.0 LDL (Calculated) 178 CALC High 0-129 71 VLDL (Calculated) 60 mg/dL High 0-50 Laboratory test finding 04/04/2009 TSH 1.65 mIU/L 0.50-6.00 LDL (Direct) 187 mg/dL High 0-130 Vitamin D 25 Hydroxy 04/04/2009 Vitamin D, 25-Hydroxy 18.1 ng/mL Low 32.0- 100.0 72 1 Because ethnic data is not always readily available, this report includes an eGFR for both -Americans and non- Americans. The National Kidney Disease Education Program (NKDEP) does not endorse the use of the MDRD equation for patients that are not between the ages of 18 and 70, are , have extremes of body size, muscle mass, or nutritional status, or are non- or non-. According to the National Kidney Foundation, irrespective of diagnosis, the stage of the disease is based on the level of kidney function: Stage Description GFR(mL/min/1.73 m(2)) 1 Kidney damage with normal or decreased GFR 90 2 Kidney damage with mild decrease in GFR 60-89 3 Moderate decrease in GFR 30-59 4 Severe decrease in GFR 15-29 5 Kidney failure <15 (or dialysis) 2 [facility] Severe Sepsis and Septic Shock Management Bundle Measure requires all lactic acids initially measuring >2.0 mmol/L be repeated. 3 Reference ranges based on room air. 4 Because ethnic data is not always readily available, this report includes an eGFR for both -Americans and non- Americans. The National Kidney Disease Education Program (NKDEP) does not endorse the use of the MDRD equation for patients that are not between the ages of 18 and 70, are , have extremes of body size, muscle mass, or nutritional status, or are non- or non-. According to the National Kidney Foundation, irrespective of diagnosis, the stage of the disease is based on the level of kidney function: Stage Description GFR(mL/min/1.73 m(2)) 1 Kidney damage with normal or decreased GFR 90 2 Kidney damage with mild decrease in GFR 60-89 3 Moderate decrease in GFR 30-59 4 Severe decrease in GFR 15-29 5 Kidney failure <15 (or dialysis) 5 Acute inflammation: >10.00 6 SRC:CERVIX 1 AFFIRM SWAB 7 Source of Specimen: CERVIX 1 AFFIRM SWAB 8 Source of Specimen: CERVIX 1 AFFIRM SWAB 9 Source of Specimen: CERVIX 1 AFFIRM SWAB 10 Source of Specimen: CERVIX 1 AFFIRM SWAB 11 Source of Specimen: CERVIX 1 AFFIRM SWAB 12 Source of Specimen: CERVIX 1 AFFIRM SWAB Acceptable specimens for this test are male urethral swab, endocervical swab and liquid based pap specimens, vaginal swabs in APTIMA transports and first void urine. See online Directory of Services for test number for rectal and pharyngeal specimens. 13 Sugar Controller: [id number] ESSENCE DEL VALLE 14 Sugar Controller: [id number] ASYA EISENBERG 15 Sugar Controller: [id number] HEMA VILLALOBOS 16 Sugar Controller: [id number] HEMA VILLALOBOS 17 Because ethnic data is not always readily available, this report includes an eGFR for both -Americans and non- Americans. The National Kidney Disease Education Program (NKDEP) does not endorse the use of the MDRD equation for patients that are not between the ages of 18 and 70, are , have extremes of body size, muscle mass, or nutritional status, or are non- or non-. According to the National Kidney Foundation, irrespective of diagnosis, the stage of the disease is based on the level of kidney function: Stage Description GFR(mL/min/1.73 m(2)) 1 Kidney damage with normal or decreased GFR 90 2 Kidney damage with mild decrease in GFR 60-89 3 Moderate decrease in GFR 30-59 4 Severe decrease in GFR 15-29 5 Kidney failure <15 (or dialysis) 18 Critical Result [id number] Called to [id number] at: 21:42:02 by:QASIM Read back by:NUBIA 19 <5.0 Negative 5.0 - 25.0 Indeterminate (Repeat testing recommended after 72 hours) >25.0 Positive Perimenopausal women can display HCG levels of up to 20 mIU/mL 20 Sugar Controller: [id number] ASYA EISENBERG 21 SEE RESULT BELOW Name: SUKHJINDER JACK : [address]: Rajat Lay MD Acct: [id number] Unit: [id number] AGE: 34 Location: ENDO Re04/25/15 SEX: F Status: REG REF SPEC: [id number] IRAIS: 04/25/15- SUBM DR: Rajat Lay MD REQ: [id number] RECD: 04/25/151504 STATUS: BRIDGETTE ARNOLD DR: Chemo Green MD _ ORDERED: LEVEL IV FINAL DIAGNOSIS Esophagus, at 30 cm, biopsy: -- Benign squamous mucosa with mild erosive esophagitis. -- No columnar component present for evaluation. -- No evidence of eosinophilic esophagitis. POST-OPERATIVE DIAGNOSIS Cricopharynx normal; body of esophagus - normal motility observed - no spasm GROSS DESCRIPTION The specimen is received in formalin labeled, Esophageal Biopsy at 30 cm, and consists of a 0.4 x 0.4 x 0.2 cm aggregate of burroughs-white irregular soft tissue fragments, which is submitted entirely in one cassette. Signed (signature on file) Maria Reyes MD 02/27 1144 END OF REPORT * ML=Testing performed at Main Lab DEPARTMENT OF PATHOLOGY, [address] [place] [address] Ralph Mora M.D. Director [facility] # [id number] 22 RESULTS VERIFIED BY REPEAT ANALYSIS 23 RESULTS VERIFIED BY REPEAT ANALYSIS 24 FASTING 25 Normal Range 180 to 914 Indeterminate Range 145 to 180 Deficient Range <145 26 FASTING 27 REFERENCE VALUE 25-HYDROXY D TOTAL (D2+D3) Optimum levels in the healthy population are 20-50, patients with bone disease may benefit from higher levels within this range. Test Performed by: [address] [address] [employer] Engineer: Uday Rico M.D. 28 Desirable <150 Borderline high 150-199 High 200-499 Very High >500 29 Desirable <200 Borderline high 200-239 High >239 30 Low <40 Desirable: 40-60 High: >60 31 Desirable <100 Near Optimal 100-129 Borderline high 130-159 High 160-189 Very High >189 32 Because ethnic data is not always readily available, this report includes an eGFR for both -Americans and non- Americans. The National Kidney Disease Education Program (NKDEP) does not endorse the use of the MDRD equation for patients that are not between the ages of 18 and 70, are , have extremes of body size, muscle mass, or nutritional status, or are non- or non-. According to the National Kidney Foundation, irrespective of diagnosis, the stage of the disease is based on the level of kidney function: Stage Description GFR(mL/min/1.73 m(2)) 1 Kidney damage with normal or decreased GFR 90 2 Kidney damage with mild decrease in GFR 60-89 3 Moderate decrease in GFR 30-59 4 Severe decrease in GFR 15-29 5 Kidney failure <15 (or dialysis) 33 Because ethnic data is not always readily available, this report includes an eGFR for both -Americans and non- Americans. The National Kidney Disease Education Program (NKDEP) does not endorse the use of the MDRD equation for patients that are not between the ages of 18 and 70, are , have extremes of body size, muscle mass, or nutritional status, or are non- or non-. According to the National Kidney Foundation, irrespective of diagnosis, the stage of the disease is based on the level of kidney function: Stage Description GFR(mL/min/1.73 m(2)) 1 Kidney damage with normal or decreased GFR 90 2 Kidney damage with mild decrease in GFR 60-89 3 Moderate decrease in GFR 30-59 4 Severe decrease in GFR 15-29 5 Kidney failure <15 (or dialysis) 34 1AMPTIMA 35 RN-[facility] [address] [id number] RN[facility] [address] [id number] 37 Acceptable specimens for this test are male urethral swab, endocervical swab and liquid based pap specimens, vaginal swabs in APTIMA transports and first void urine. See online Directory of Services for test number for rectal and pharyngeal specimens. RN-[facility] [address] [id number] 38 Negative <0.91 Equivocal 0.91 - 1.09 Positive >1.09 Note: The CDC currently advises that Western blot testing be performed following all equivocal or positive EIA results. Final diagnosis should include appropriate clinical findings and a positive EIA which is also positive by Western blot. 39 Negative <0.91 Equivocal 0.91 - 1.09 Positive >1.09 Note: IgM levels may peak at 3-6 weeks post infection, then gradually decline. FDA currently advises that Western Blot testing be performed following all equivocal or positive EIA results. Final diagnosis should include appropriate clinical findings and a positive EIA which is also positive by Western Blot. 40 Negative <1:80 Borderline 1:80 Positive >1:80 41 -- REFERENCE VALUE -- 25-HYDROXY D TOTAL (D2+D3) Optimum levels in the healthy population are 20-50, patients with bone disease may benefit from higher levels within this range. Test Performed by: [address] [address] [employer]: Efraín Ramey III, M.D. 42 HDL Interpretation: Undesirable: High Risk: Less than 40 mg/dL Desirable: Low Risk: Greater than 60 mg/dL 43 LDL Interpretation: Low Risk Optimal Level: LDL Less than 100 mg/dL Near or Above Optimal: LDL 100-129 mg/dL Borderline High Risk: LDL 130-159 mg/dL High Risk: LDL 160-189 mg/dL Very High Risk: LDL Greater than 189 mg/dL 44 FASTING 45 Microalbuminuria in a random sample is defined as: Microalbumin/Creatinine ratio of 30-299 ug/mg. 46 Because ethnic data is not always readily available, this report includes an eGFR for both -Americans and non- Americans. The National Kidney Disease Education Program (NKDEP) does not endorse the use of the MDRD equation for patients that are not between the ages of 18 and 70, are , have extremes of body size, muscle mass, or nutritional status, or are non- or non-. According to the National Kidney Foundation, irrespective of diagnosis, the stage of the disease is based on the level of kidney function: Stage Description GFR(mL/min/1.73 m(2)) 1 Kidney damage with normal or decreased GFR 90 2 Kidney damage with mild decrease in GFR 60-89 3 Moderate decrease in GFR 30-59 4 Severe decrease in GFR 15-29 5 Kidney failure <15 (or dialysis) 47 HDL Interpretation: Undesirable: High Risk: Less than 40 mg/dL Desirable: Low Risk: Greater than 60 mg/dL 48 LDL Interpretation: Low Risk Optimal Level: LDL Less than 100 mg/dL Near or Above Optimal: LDL 100-129 mg/dL Borderline High Risk: LDL 130-159 mg/dL High Risk: LDL 160-189 mg/dL Very High Risk: LDL Greater than 189 mg/dL 49 -- REFERENCE VALUE -- 25-HYDROXY D TOTAL (D2+D3) Optimum levels in the normal population are 25-80 Test Performed by: [facility] [address] [place] [id number] [employer]: Efraín Ramey III, M.D. 50 CHOLESTEROL INTERPRETATION: Desirable: Less than 200 MG/DL Borderline-High Risk: 200-239 MG/DL High-Risk: 240 MG/DL and over 51 Anion gap measurement may be of limited value in the presence of any alkalosis, especially in a combined acid base disorder. . 52 A metabolite of Naproxen, O-desmethylnaproxen, has been shown to interfere with the [place] method for measuring total bilirubin. Samples from patients who have taken Naproxen have shown spurious elevation in total bilirubin levels. 53 Because ethnic data is not always readily available, this report includes an eGFR for both -Americans and non- Americans. The National Kidney Disease Education Program (NKDEP) does not endorse the use of the MDRD equation for patients that are not between the ages of 18 and 70, are , have extremes of body size, muscle mass, or nutritional status, or are non- or non-. According to the National Kidney Foundation, irrespective of diagnosis, the stage of the disease is based on the level of kidney function: Stage Description GFR(mL/min/1.73 m(2)) 1 Kidney damage with normal or decreased GFR 90 2 Kidney damage with mild decrease in GFR 60-89 3 Moderate decrease in GFR 30-59 4 Severe decrease in GFR 15-29 5 Kidney failure <15 (or dialysis) 54 PLEASE NOTE NEW REFERENCE RANGE. 55 NEGATIVE FOR CHLAMYDIA TRACHOMATIS rRNA A negative result does not preclude the presence of a C.trachomatis or N.gonorrhoeae infection because results are dependent on adequate specimen collection, absence of inhibitors, and sufficient rRNA to be detected. Test results may be affected by improper specimen collection, improper specimen storage, technical error, or specimen mixup. 56 Imm. NE 1 57 NEGATIVE FOR NEISSERIA GONORRHOEAE rRNA A negative result does not preclude the presence of a C.trachomatis or N.gonorrhoeae infection because results are dependent on adequate specimen collection, absence of inhibitors, and sufficient rRNA to be detected. Test results may be affected by improper specimen collection, improper specimen storage, technical error, or specimen mixup. 58 Please note updated reference range, effective 10/03/09 59 If is still suspected, please repeat test after 48 to 72 hours. . 60 Anion gap measurement may be of limited value in the presence of any alkalosis, especially in a combined acid base disorder. . 61 Note change in reference range as of 11/03/07. The change was based on recommendations from the [place] [employer]. 62 A metabolite of Naproxen, O-desmethylnaproxen, has been shown to interfere with the [place] method for measuring total bilirubin. Samples from patients who have taken Naproxen have shown spurious elevation in total bilirubin levels. 63 Because ethnic data is not always readily available, this report includes an eGFR for both -Americans and non- Americans. The National Kidney Disease Education Program (NKDEP) does not endorse the use of the MDRD equation for patients that are not between the ages of 18 and 70, are , have extremes of body size, muscle mass, or nutritional status, or are non- or non-. According to the National Kidney Foundation, irrespective of diagnosis, the stage of the disease is based on the level of kidney function: Stage Description GFR(mL/min/1.73 m(2)) 1 Kidney damage with normal or decreased GFR 90 2 Kidney damage with mild decrease in GFR 60-89 3 Moderate decrease in GFR 30-59 4 Severe decrease in GFR 15-29 5 Kidney failure <15 (or dialysis) 64 3 SST 65 Index Value: Specimen reactivity relative to the negative cutoff. 66 Negative: Non-reactive by ICMA Positive: Repeatedly reactive by ICMA. Refer to Western Blot confirmatory test for final interpretation. . Physician should litigation counsel the patient about result significance. Patient information should be kept strictly confidential. 67 The CDC defines an adequate response to vaccinations as a result >=10 mIU/ml. Results 8-12 mIU/ml are considered equivocal and should be interpreted in the context of other factors (clinical status, follow-up testing, associated risk factors etc.). Repeat testing is suggested if clinically indicated. 68 Birthday Gorilla. DEPARTMENT OF PATHOLOGY or Extension 8234 IT HELP DESK ANALYST CYTOLOGY REPORT PATIENT: SUKHJINDER JACK : 1980 AGE: 28 Y SEX: F ACCT: [id number] PROCEDURE DATE: 04/10/2009 DATE RECEIVED: 04/11/2009 REQUESTING PHYSICIAN: NAN GREEN MD [place] [facility] [id number] PATIENT DATA: [id number] SPECIMEN SUBMITTED: * * (HPVII) THIN PREP W/HPV (LSIL/ASC/AUGUSTO) * * ENDOCERVICAL RELEVANT HISTORY: LMP: 03/20/2009 Contraceptive: NONE Prev.normal: 03-21 SPECIMEN ADEQUACY SATISFACTORY FOR EVALUATION, ENDOCERVICAL TRANSFORMATION ZONE COMPONENT PRESENT GENERAL CATEGORIZATION NEGATIVE FOR INTRAEPITHELIAL LESIONS OR MALIGNANCY ADDITIONAL COPIES SENT TO: Screened/Rescreened by: Electronically Signed by: TRAVIS WARE(ASCP) Signed Date/Time 04/12/2009 14:06 Thin Prep Pap tests are examined with an FDA-approved location-guidance system (53906). Performed @ [facility] [address] [place] [address] "" 69 Negative <0.91 Equivocal 0.91 - 1.09 Positive >1.09 . Note: Negative indicates no antibodies detected to HSV-1. Equivocal may suggest early infection. If clinically appropriate, retest at later date. Positive indicates antibodies detected to HSV-1; coinfection with HSV-2 cannot be excluded without type specific testing. 70 Negative <0.91 Equivocal 0.91 - 1.09 Positive >1.09 . Note: Negative indicates no antibodies detected to HSV-2. Equivocal may suggest early infection. If clinically appropriate, retest at later date. Positive indicates antibodies detected to HSV-2; coinfection with HSV-1 cannot be excluded without type specific testing. 71 INVALID 72 Recent studies consider the lower limit of 32.0 ng/mL to be a threshold for optimal health. Aleks VAZQUEZ. J Nutr. 2005 Feb;135(2):317-22. Procedures Date CPT Code Description Status 12/12/2015 89602 Pulse Oximetry Completed 09/10/2014 17955 Pulse Oximetry Completed 04/12/2010 00779 Pulse Oximetry Completed 11/15/2009 40033 Remove Impacted Cerumen Completed Encounters Type Date Location Provider CPT E/M Dx Office Visit 11/17/2016 11:10a [facility] Mayank Green M.D. 94535 J20.9 J01.00 Office Visit 08/25/2016 4:00p Main Office Adeola Lamar M.D. 97806 R05 Office Visit 07/01/2016 1:45p Main Office Berenice Laguerre [facility] 80509 R21 Office Visit 04/10/2016 10:45a Main Office Berenice Laguerre [facility] 27668 J20.9 Office Visit 04/02/2016 1:50p [facility] Nan Green M.D. 66667 M26.602 F17.210 Z23 Z71.6 Office Visit 01/08/2016 10:45a [facility] Office Maria Briceñobhart [facility] 54829 R05 J18.9 K21.9 Office Visit 12/12/2015 1:00p Main Office Joanne Santizo [facility] 84541 J18.9 Office Visit 11/28/2015 3:15p [facility] Joanne Santizo [facility] 30809 M70.41 M70.42 M54.2 Office Visit 09/12/2015 1:30p Main Office Maria Briceñobhart MEDICAL CSR 49078 R10.30 R23.2 E10.9 Office Visit 10/19/2014 9:45a Main Office Berenice Laguerre MEDICAL CSR 97258 300.00 311 Office Visit 09/10/2014 9:45a [place] [address] 466.0 Office Visit 08/03/2014 9:00a [place] [address] 611.72 780.79 311 250.01 Office Visit 05/23/2014 9:00a Main Office Berenice Laguerre MEDICAL CSR 22034 300.00 311 Office Visit 05/03/2014 10:15a [facility] TANNA Partida 23494 300.00 311 Office Visit 04/04/2014 2:00p Main Office Berenice Laguerre MEDICAL CSR 73243 786.2 381.01 Office Visit 03/27/2014 9:45a Main Office Tayla Mosqueda, [facility]C 63835 465.9 723.1 Office Visit 01/09/2014 10:45a Main Office Maria Cobos, [facility] 73895 786.2 462 Office Visit 09/01/2013 2:00p Main Office Berenice Laguerre, [facility] 91145 724.2 Office Visit 07/24/2013 1:45p Main Office Angela EdwardsELYSE 73645 789.03 112.3 Office Visit 04/25/2013 9:30a Main Office Maria Cobos, MEDICAL CSR 59389 466.0 786.2 Office Visit 02/16/2013 11:30a Main Office Joanne Santizo [facility]C 66305 719.49 Office Visit 08/03/2012 1:45p Main Office Tayla Dillonbrandee [facility]C 86291 724.2 Office Visit 04/18/2012 2:20p Main Office Mayank Green M.D. 34126 465.9 Office Visit 07/09/2011 3:40p Main Office Aly Abbasi M.D. 71405 723.1 461.0 Office Visit 06/20/2011 1:00p Main Office Aly Abbasi M.D. 60661 723.4 Office Visit 11/12/2010 7:20p Main Office Mayank Green M.D. 37204 912.1 Office Visit 10/22/2010 2:15p Main Office Tayla Wilmabrandee [facility]C 50300 784.92 Office Visit 08/13/2010 1:40p Main Office Suzi Lowe M.D. 29952 729.5 Office Visit 08/01/2010 4:00p Main Office Mayank Green M.D. 71344 686.9 Office Visit 06/02/2010 9:15a Main Office Tayla Dillonbrandee [facility]C 97435 703.8 V06.5 Office Visit 04/12/2010 10:00a Main Office Joanne Darlyn, Afnp[facility]C 90628 466.0 Office Visit 02/19/2010 3:10p [facility] Aly Abbasi M.D. 73682 789.03 Office Visit 12/16/2009 2:40p [facility] Aly Abbasi M.D. 56273 787.01 Office Visit 11/15/2009 9:10a [facility] Nan Green M.D. 67522 380.22 Office Visit 09/04/2009 11:30a [facility] Office Berenice Laguerre [facility] 06540 461.9 Office Visit 04/30/2009 9:10a Main Office Nan Green M.D. 88393 250.03 Office Visit 04/26/2009 1:30p Main Office Nan Green M.D. 03342 250.03 Office Visit 04/10/2009 12:10p Main Office Nan Green M.D. 59984 V72.31 112.1 V69.8 V73.89 250.00 Office Visit 04/04/2009 10:20a [facility] Nan Green M.D. 42070 250.00 599.72 272.1 Plan of Care 02/18/2017 - Veda Ladd, NPR11.2 Nausea with vomiting, unspecifiedNew Medication:Zofran Odt 4 mgWork NoteComments:clear liquid diet until tolerating then switch to basic bland diet : rice, apple sauce, dry toastworsening condition - call office.R19.7 Diarrhea, imseehesinnV65.9 Fever, unspecifiedComments:No work until fever free x 24 hours.AllComments:~B_~U_ Medication Management~b_~u_ Patient Understands medications she's taking? Yes No Are there Barriers to Adherence? Yes No Has the patient been asked about herbal supplements and therapies, and OTC meds? Yes No ~ B_~U_Care Plan~b_~u_1. Patient has been queried about patient's goals/ preferences and functional/lifestyle goals at relevant visits. If relevant, describe: na2. Treatment goals as explained to the patient: above3. Are there barriers to meeting treatment goals? Yes No If Yes, please describe:4. Self-Management goals as described to the patient: Yes NoFollow up:As always, we strongly encourage a healthy diet and making physical activity a part of your every day life. If you have questions about how or where to start, please contact the office.
== END 2017-03-02 17:39 | disposition left against medical advice (07) ==
LOC: UCEAST 16:47
DX: R10.9 Unspecified abdominal pain (principal); Z53.21 Procedure and treatment not carried out due to patient leaving prior to being seen by health care provider

== ENCOUNTER 2017-03-04 13:59 | Emergency (ER) | payer BC ==
[2017-03-04] MEDS ORDERED: Ibuprofen TAB* 600 MG PO ONE (14:19)
[2017-03-04 14:42] LABS: Hematocrit 41 % (35-47); Hemoglobin 13.9 g/dl (12.0-16.0); Mean Corpuscular HGB Conc 34 g/dl (31-36); Mean Corpuscular Hemoglobin 31 pg (27-31); Mean Corpuscular Volume 92 fL (80-97); Mean Platelet Volume 8 um3 (7.4-10.4); Red Blood Count 4.43 10^6/ul (4.0-5.4); Red Cell Distribution Width 13 % (10.5-15); White Blood Count 7.4 10^3/ul (3.5-10.8)
[2017-03-04 14:56] LABS: ALT 10 U/L (7-52); AST 13 U/L (13-39); Albumin 3.9 g/dL (3.2-5.2); Alkaline Phosphatase 53 U/L (34-104); Anion Gap 4 mmol/L (2-11); BUN/Creatinine Ratio 11.8 (8-20); Blood Urea Nitrogen 10 mg/dL (6-24); CO2 Carbon Dioxide 26 mmol/L (22-32); Chloride 104 mmol/L (101-111); EGFR African American 97.3 (>60); EGFR Non-African American 75.7 (>60); Globulin 2.5 g/dL (2-4); Glucose 193 mg/dL (70-100); Potassium 3.9 mmol/L (3.5-5.0); Sodium 134 mmol/L (133-145); Total Protein 6.4 g/dL (6.4-8.9)
[2017-03-04 15:53] LABS: Urine Bilirubin Negative (Negative); Urine Glucose 3+(>=500 mg/dL) (Negative); Urine Nitrite Negative (Negative)
--- NOTE | 2017-03-04 15:54 | RAD ---
HISTORY: Pelvic cramping COMPARISONS: February 19, 2010 TECHNIQUE: Multiple transverse and longitudinal ultrasound images were obtained of the pelvis using grayscale, color Doppler, and spectral Doppler imaging using the endovaginal transducer. FINDINGS: UTERUS: The uterus measures 6.8 x 3.5 x 5.2 cm. The uterus is normal in shape, size, contour, and echotexture. ENDOMETRIUM: The endometrial stripe is smooth. The endometrium measures 0.5 cm in thickness. An IUD is noted centrally within the endometrial cavity towards the fundus. CUL-DE-SAC: There is no free fluid within the cul-de-sac. RIGHT OVARY: The right ovary measures 3 x 2.7 x 1.3 cm. Normal arterial and venous waveforms are identifiable within the ovary on spectral Doppler imaging. LEFT OVARY: The left ovary measures 3.4 x 2.7 x 2.4 cm. Normal arterial and venous waveforms are identifiable within the ovary on spectral Doppler imaging. There is a heterogeneously hypoechoic cystic lesion of the left ovary measuring 2.2 x 1.2 x 2.0 cm in size, suggestive of an involuting follicular cyst. BLADDER: The bladder is not well visualized. OTHER: None IMPRESSION: 1. IUD. 2. MINIMALLY COMPLICATED CYSTIC LESION OF THE LEFT OVARY, LIKELY AN INVOLUTING CYST. RECOMMEND FOLLOW-UP IMAGING IN 6 WEEKS-12 WEEKS TO DOCUMENT RESOLUTION
[2017-03-04] MEDS ORDERED: Fluconazole 150 MG (NF) 150 MG TAB PO ONE (15:59)
--- NOTE | 2017-03-04 16:12 | ED ---
Luann Wheeler Gabriel, scribed for Jag Rubio MD on 03/04/17 at 1418 . GI/ HPI - HPI Summary HPI Summary: This patient is a 36 year old F presenting to [facility] because she believes her IUD may be dislodged. The patient rates the pain 5/10 in severity. Patient reports ABD pain, lower back pain, and cramping. Patient denies dysuria, vaginal bleeding, and discharge. Her IUD is a Liletta and her LNMP was two weeks ago. She is a type one diabetic and her current blood glucose is 234 which she says is slightly high for her. - History of Current Complaint Chief Complaint: EDOBProblems Stated Complaint: CRAMPING/ABD PAIN Hx Obtained From: Patient Onset/Duration: Still Present Timing: Constant Severity: Mild Current Severity: Mild Pain Intensity: 5 Location of Pain: Diffuse - Allergy/Home Medications Allergies/Adverse Reactions: Allergies Allergy/AdvReac Type Severity Reaction Status Date / Time No Known Allergies Allergy Verified 03/04/17 14:01 PMH/Surg Hx/FS Hx/Imm Hx Previously Healthy: No Endocrine/Hematology History: Reports: Hx Diabetes History: Denies: Hx Acute Renal Failure Neurological History: Denies: Hx CVA, Hx Dementia Infectious Disease History: No Infectious Disease History: Denies: Traveled Outside the [place] in Last 30 Days - Family History Known Family History: Positive: Hypertension Family History: R & n/C - Social History Alcohol Use: None Alcohol Amount: 1-2 drinks per day Hx Substance Use: No Substance Use Type: Reports: None Hx Tobacco Use: No Smoking Status (MU): Never Smoked Tobacco Review of Systems Positive: Abdominal Pain - and cramping Genitourinary: Negative - vaginal bleeding Negative: dysuria, discharge Positive: Other - lower back pain All Other Systems Reviewed And Are Negative: Yes Physical Exam - Summary Physical Exam Summary: Appearance: Well appearing, no pain distress, patient smells like smoke Skin: warm, dry, reflects adequate perfusion Head/face: normal Eyes: EOMI, BLANCO ENT: normal Neck: supple, non-tender Respiratory: CTA, breath sounds present Cardiovascular: RRR, pulses symmetrical Abdomen: non-tender, soft, there is an insulin pump in her LLQ Pelvic: Thick clumpy white discharge, no cervical motion tenderness, no masses, IUD string in place. Heather was top screw. Bowel: present Musculoskeletal: normal, strength/ROM intact Neuro: normal, sensory motor intact, A&Ox Triage Information Reviewed: Yes Vital Signs On Initial Exam: Initial Vitals Temp Pulse Resp BP Pulse Ox 96.5 F 88 16 122/75 97 03/04/17 14:01 03/04/17 14:01 03/04/17 14:01 03/04/17 14:01 03/04/17 14:01 Vital Signs Reviewed: Yes - Shira Coma Scale Coma Scale Total: 15 Diagnostics - Vital Signs Vital Signs Temp Pulse Resp BP Pulse Ox 03/04/17 14:01 96.5 F 88 16 122/75 97 - Laboratory Lab Results: Lab Results 03/04/17 03/04/17 03/04/17 Range/Units 14:30 14:30 15:01 WBC 7.4 (3.5-10.8) 10^3/ul RBC 4.43 (4.0-5.4) 10^6/ul Hgb 13.9 (12.0-16.0) g/dl Hct 41 (35-47) % MCV 92 (80-97) fL MCH 31 (27-31) pg MCHC 34 (31-36) g/dl RDW 13 (10.5-15) % Plt Count 175 (150-450) 10^3/ul MPV 8 (7.4-10.4) um3 Neut % (Auto) 53.4 (38-83) % Lymph % (Auto) 34.3 (25-47) % Kendall % (Auto) 6.8 (1-9) % Eos % (Auto) 4.7 (0-6) % Baso % (Auto) 0.8 (0-2) % Absolute Neuts (auto) 4.0 (1.5-7.7) 10^3/ul Absolute Lymphs (auto) 2.5 (1.0-4.8) 10^3/ul Absolute Monos (auto) 0.5 (0-0.8) 10^3/ul Absolute Eos (auto) 0.3 (0-0.6) 10^3/ul Absolute Basos (auto) 0.1 (0-0.2) 10^3/ul Absolute Nucleated RBC 0.01 10^3/ul Nucleated RBC % 0.1 Sodium 134 (133-145) mmol/L Potassium 3.9 (3.5-5.0) mmol/L Chloride 104 (101-111) mmol/L Carbon Dioxide 26 (22-32) mmol/L Anion Gap 4 (2-11) mmol/L BUN 10 (6-24) mg/dL Creatinine 0.85 (0.51-0.95) mg/dL Est GFR ( Amer) 97.3 (>60) Est GFR (Non-Af Amer) 75.7 (>60) BUN/Creatinine Ratio 11.8 (8-20) Glucose 193 H (70-100) mg/dL Calcium 9.0 (8.6-10.3) mg/dL Total Bilirubin 0.40 (0.2-1.0) mg/dL AST 13 (13-39) U/L ALT 10 (7-52) U/L Alkaline Phosphatase 53 (34-104) U/L Total Protein 6.4 (6.4-8.9) g/dL Albumin 3.9 (3.2-5.2) g/dL Globulin 2.5 (2-4) g/dL Albumin/Globulin Ratio 1.6 (1-3) Beta HCG, Quant < 0.60 mIU/mL Urine Color Yellow Urine Appearance Cloudy Urine pH 7.0 (5-9) Ur Specific Nadeau 1.025 (1.010-1.030) Urine Protein Negative (Negative) Urine Ketones 1+ H (Negative) Urine Blood Negative (Negative) Urine Nitrate Negative (Negative) Urine Bilirubin Negative (Negative) Urine Urobilinogen Negative (Negative) Ur Leukocyte Esterase Negative (Negative) Urine Glucose 3+(>=500 mg/dl) H (Negative) Result Diagrams: 03/04/17 14:30 03/04/17 14:30 Lab Statement: Any lab studies that have been ordered have been reviewed, and results considered in the medical decision making process. - Additional Comments Diagnostic Additional Comments: Transvaginal US reveals, per radiologist, 1. IUD. 2. MINIMALLY COMPLICATED CYSTIC LESION OF THE LEFT OVARY, LIKELY AN INVOLUTING CYST. RECOMMEND FOLLOW-UP IMAGING IN 6 WEEKS-12 WEEKS TO DOCUMENT RESOLUTION ED physician has reviewed this radiology report. GIGU Course/Dx - Course Course Of Treatment: pt is diabetic on pump. No UTI. L ovarian cyst without torsion. Thick white discharge c/w candidal infection. Diflucan 150mg here. Pain minimal, tx with NSAID. D/C in good condition. - Diagnoses Differential Diagnoses - Female: Candidiasis, Ovarian Cyst, Ovarian Torsion, Tubo-Ovarian Abscess, Vaginitis Provider Diagnoses: Ovarian cyst, Vaginal candidiasis Discharge - Discharge Plan Condition: Good Disposition: HOME Patient Education Materials: Ovarian Cyst (ED), Vulvovaginal Candidiasis (ED) Referrals: Mayank Green MD [Primary Care Provider] - Additional Instructions: Activia yogurt may help. Keep close eye on your sugars. Motrin for discomfort. Return with fever, uncontrolled sugars, uncontrolled pain or other concerns as discussed. The documentation as recorded by the Luann samson Gabriel accurately reflects the service I personally performed and the decisions made by me, Jag Rubio MD.
[2017-03-04] MEDS ORDERED: Fluconazole 100 MG TAB* TAB PO ONE (16:30)
[2017-03-04 16:42] VITALS: BP 111/63
== END 2017-03-04 16:42 | disposition home or self-care (01) ==
LOC: ED 13:59
DX: N83.202 Unspecified ovarian cyst, left side (principal); B37.3 Candidiasis of vulva and vagina; E11.8 Type 2 diabetes mellitus with unspecified complications; Z79.4 Long term (current) use of insulin; Z97.5 Presence of (intrauterine) contraceptive device
CPT/HCPCS: 36415; 76830; 80053; 81003; 84702; 85025; 87491; 87591; 99283; A9270-GY

== ENCOUNTER 2019-01-01 12:16 | Emergency (ER) | payer BC ==
[2019-01-01] MEDS ORDERED: NS 0.9% 1000 ML** 1,000 ML IV ONE (12:28)
--- NOTE | 2019-01-01 12:32 | ED ---
Complex/Multi-Sys Presentation - HPI Summary HPI Summary: Patient is 38 y/o diabetic female presenting to [facility] with concerns of blood sugar levels in the 400s. She states that she has had cold Sx for the past few days. This morning, she had felt better and checked her BG levels, which were noted to be in the 400s. Afterwards, she states that she began to experience diffuse body aches, heart racing palpitations, "shallow respirations", and N/V. She notes that she has "been near" DKA previously with similar Sx, but notes that this episode's Sx were more severe. She states that she took a correction around 1.5 hours ago and her last check had her BG in the mid 300s. At present, she states that her pain is less severe but still present. She is still nauseous but has not vomited in the past 20-30 minutes. On triage, pain is rated 6/10. Home medications and allergies are reviewed. - History Of Current Complaint Chief Complaint: EDGeneral Time Seen by Provider: 01/01/19 12:23 Hx Obtained From: Patient Onset/Duration: Still Present Timing: Constant Severity Currently: Moderate Severity Initially: Severe Location: Pain At: - diffuse body aches Associated Signs And Symptoms: Positive: SOB - "shallow respirations", Palpitations, Nausea, Vomiting, Other - positive - diffuse body aches, elevated BG - Allergies/Home Medications Allergies/Adverse Reactions: Allergies Allergy/AdvReac Type Severity Reaction Status Date / Time No Known Allergies Allergy Verified 03/04/17 14:01 Home Medications: Home Medications Oxybutynin TAB* [Ditropan TAB*] 5 mg PO BID 01/01/19 [History Confirmed 01/01/19 ] PMH/Surg Hx/FS Hx/Imm Hx Endocrine/Hematology History: Reports: Hx Diabetes History: Denies: Hx Acute Renal Failure Neurological History: Denies: Hx CVA, Hx Dementia Infectious Disease History: No Infectious Disease History: Denies: Traveled Outside the [place] in Last 30 Days - Family History Known Family History: Positive: Hypertension - Social History Alcohol Use: None Alcohol Amount: 1-2 drinks per day Hx Substance Use: No Substance Use Type: Reports: None Hx Tobacco Use: No Smoking Status (MU): Never Smoked Tobacco Review of Systems Constitutional: Other - positive - body aches, elevated BG concerns Positive: Palpitations Positive: Shortness Of Breath - "shallow respirations" Positive: Vomiting, Nausea All Other Systems Reviewed And Are Negative: Yes Physical Exam - Summary Physical Exam Summary: Appearance: The patient is well-nourished in no acute distress and in no acute pain. Skin: The skin is warm and dry, and skin color reflects adequate perfusion. HEENT: The head is normocephalic and atraumatic. The pupils are equal and reactive. The conjunctivae are clear and without drainage. Nares are patent and without drainage. Mouth reveals moist mucous membranes, and the throat is without erythema and exudate. The external ears are intact. The ear canals are patent and without drainage. The tympanic membranes are intact. Neck: The neck is supple with full range of motion and non-tender. There are no carotid bruits. There is no neck vein distension. Respiratory: Chest is non-tender. Lungs are clear to auscultation and breath sounds are symmetrical and equal. Cardiovascular: Tachycardia is noted. There is no murmur or rub auscultated. There is no peripheral edema and pulses are symmetrical and equal. Abdomen: The abdomen is soft and non-tender. There are normal bowel sounds heard in all four quadrants and there is no organomegaly palpated. Musculoskeletal: There is no back tenderness noted. Extremities are non-tender with full range of motion. There is good capillary refill. There is no peripheral edema or calf tenderness elicited. Neurological: Patient is alert and oriented to person, place and time. The patient has symmetrical motor strength in all four extremities. Cranial nerves are grossly intact. Deep tendon reflexes are symmetrical and equal in all four extremities. Psychiatric: The patient has an appropriate affect and does not exhibit any anxiety or depression. Triage Information Reviewed: Yes Vital Signs On Initial Exam: Initial Vitals Temp Pulse Resp BP Pulse Ox 99.8 F 118 16 146/81 100 01/01/19 12:18 01/01/19 12:18 01/01/19 12:18 01/01/19 12:18 01/01/19 12:18 Vital Signs Reviewed: Yes Procedures - Sedation Patient Received Moderate/Deep Sedation with Procedure: No Diagnostics - Vital Signs Vital Signs Temp Pulse Resp BP Pulse Ox 01/01/19 12:18 99.8 F 118 16 146/81 100 - Laboratory Result Diagrams: 01/01/19 12:44 01/01/19 12:44 Lab Statement: Any lab studies that have been ordered have been reviewed, and results considered in the medical decision making process. Complex Multi-Symp Course/Dx Course Of Treatment: Ms. Ray was feeling bad this morning and checked her blood sugar and found it high. She adjusted her insulin pump but continued to feel very badly so she came to the emergency department. By the time she gets here she started to feel little bit better. She was placed on a monitor and labs were obtained revealing her to be mildly hyperglycemic and not acidotic. By the time the labs were back she was feeling much improved and had received a liter of fluid. I think she stopped herself from going into DKA. - Diagnoses Provider Diagnoses: Hyperglycemia Discharge ED - Sign-Out/Discharge Documenting (check all that apply): Patient Departure - discharge - Discharge Plan Condition: Stable Disposition: HOME Patient Education Materials: Diabetic Hyperglycemia (ED) Referrals: Chemo Mendosa MD [Primary Care Provider] - 3 Days Additional Instructions: PLEASE RETURN TO ED FOR ANY NEW OR WORSENING SYMPTOMS. PLEASE FOLLOW UP WITH YOUR PRIMARY CARE PHYSICIAN WITHIN 1-3 DAYS. - Billing Disposition and Condition Condition: STABLE Disposition: Home - Attestation Statements Document Initiated by Anna: Yes Documenting Scribe: ALLISON MEMBRENO Provider For Whom Anna is Documenting (Include Credential): EMMANUEL SHAFER MD Scribe Attestation: I, ALLISON MEMBRENO, scribed for EMMANUEL SHAFER MD on 01/01/19 at 1856. Scribe Documentation Reviewed: Yes Provider Attestation: The documentation as recorded by the ALLISON samson accurately reflects the service I personally performed and the decisions made by me, EMMANUEL SHAFER MD Status of Scribe Document: Viewed
[2019-01-01 12:51] LABS: ABS Basophils 0.1 10^3/ul (0-0.2); ABS Eosinophils 0.3 10^3/ul (0-0.6); ABS Lymphocytes 2.1 10^3/ul (1.0-4.8); ABS Monocytes 0.6 10^3/ul (0-0.8); ABS Neutrophils 10.3 10^3/ul (1.5-7.7); Eosinophil % 2.6 %; Hematocrit 41 % (35-47); Hemoglobin 14.1 g/dL (12.0-16.0); Lymphocyte % 15.6 %; Mean Corpuscular HGB Conc 34 g/dL (31-36); Mean Corpuscular Hemoglobin 32 pg (27-31); Mean Corpuscular Volume 92 fL (80-97); Mean Platelet Volume 8.3 fL (7.4-10.4); Platelet Count 181 10^3/uL (150-450); Red Blood Count 4.47 10^6 /uL (3.70-4.87); Red Cell Distribution Width 12 % (10-15); White Blood Count 13.4 10^3/uL (3.5-10.8)
[2019-01-01 13:07] LABS: ALT 12 U/L (7-52); AST 12 U/L (13-39); Albumin/Globulin Ratio 1.5 (1-3); Alkaline Phosphatase 56 U/L (34-104); Anion Gap 6 mmol/L (2-11); BUN/Creatinine Ratio 14.5 (8-20); Blood Urea Nitrogen 12 mg/dL (6-24); C Reactive Protein < 1.00 mg/L (<8.01); CO2 Carbon Dioxide 23 mmol/L (22-32); Calcium 9.1 mg/dL (8.6-10.3); Chloride 103 mmol/L (101-111); EGFR African American 93.1 (>60); EGFR Non-African American 76.9 (>60); Globulin 2.7 g/dL (2-4); Glucose 284 mg/dL (70-100); Sodium 132 mmol/L (135-145); Total Protein 6.7 g/dL (6.4-8.9)
[2019-01-01 14:50] VITALS: BP 115/69
== END 2019-01-01 14:39 | disposition home or self-care (01) ==
LOC: ED 12:16
DX: E11.65 Type 2 diabetes mellitus with hyperglycemia (principal)
CPT/HCPCS: 36415; 80053; 82803; 83605; 85025; 86140; 96360; 96361; 99283